=== PATIENT | male | born 1945 | race Two or more races ===

== ENCOUNTER 2024-10-19 06:29 | Inpatient (IN) | payer MEDICARE, MEDICAID, SELFPAY ==
[2024-10-19] VITALS (38 sets, daily range): BP systolic 52–108; BP diastolic 32–84; PULSE 69–133; RESP 14–29; TEMP 36.1–37; O2SAT 87–100; BMI 33.7; BMI 34.2
--- NOTE | 2024-10-19 06:36 | PD.EDADULT ---
ED General RME/HPI General Chief complaint: Fall Stated complaint: FALL Time Seen by Provider: 10/19/24 06:31 Arrival date/time: 10/19/24 06:29 RME / HPI RME / HPI narrative: DR. ALDANA MAIN ED EVALUATION: 78 year old male presents to the Emergency Department [facility] with complaint of a fall, something about the patient lost balance and got stuck between bed or dresser. Per EMS, patient was hypotensive, systolic BP in the 60's. Patient also complains of being thirsty. EMS reported that his home was dirty. 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 Social Hx: No tobacco, alcohol, or substance use. Related Data Home Medications ?Medication ?Instructions ?Recorded ?Confirmed lovastatin 20 mg tablet 20 mg PO HS #0 tabs 06/08/15 05/28/21 amlodipine 5 mg tablet 5 mg PO QDAY 09/04/20 05/28/21 doxazosin 4 mg tablet 4 mg PO QDAY 09/04/20 05/28/21 fluoxetine 10 mg capsule 10 mg PO QDAY 09/04/20 05/28/21 lisinopril 20 mg tablet 20 mg PO QDAY 09/04/20 05/28/21 metoprolol tartrate 100 mg tablet 100 mg PO BID 09/04/20 05/28/21 ropinirole 1 mg tablet 1 mg PO HS 09/04/20 05/28/21 Allergies Allergy/AdvReac Type Severity Reaction Status Date / Time codeine Allergy Mild WHOLE BODY Verified 10/19/24 07:20 SWELLED Penicillins Allergy Mild Difficulty Verified 10/19/24 07:20 Breathing hydrocodone Allergy Unknown Verified 10/19/24 07:20 Review of Systems Review of Systems Systems Reviewed: All systems reviewed, normal except as documented Narrative Review of Systems: GEN: No fever, no chills, no weight loss, + thirsty EYES: No discharge, no visual changes, no pain HEENT: No ear pain, no congestion, no sore throat PULM: No shortness of breath, no cough, no congestion CV: No chest pain, no dyspnea on exertion, no palpitations GI: No nausea, no vomiting, no diarrhea, no pain, no constipation : No frequency, no urgency and no dysuria MUSC/SKEL: + head injury possible secondary to fall, no back pain SKIN: No rash PSYCH: No hallucinations, no depression HEME/LYMPH: No easy bleeding or bruising tendencies NEURO: No weakness, no headache Past Medical History Past Medical History NEUROLOGIC: Positive Cerebrovascular Accident and Traumatic Brain Injury CARDIAC: Positive Cardiac Disorders, Hypercholesterolemia and Hypertension RESPIRATORY: Positive Chronic Obstructive Pulmonary Disease (COPD) GASTROINTESTINAL: Negative Gastrointestinal Disorders ENDOCRINE: Positive Diabetes Mellitus Type 2 Social History SMOKING STATUS: Unknown if ever smoked ED Exam Narrative Physical exam: GENERAL APPEARANCE: Patient had slurred speech but making sense; initially at arrival the patient was pale and diaphoretic. VITALS: All vitals were reviewed and the pulse ox is 96% on 6 L/min via a nasal cannula. HEENT: deformity to left skull and scalp consistent with old craniotomy; pupils equal, round, reactive to light; EOMI; mucous membranes pink, moist; oropharynx clear NECK: Supple LUNGS: CTABL; no wheezes, no rales, no rhonchi HEART: Regular rate, regular rhythm; normal S1, S2; no murmurs ABDOMEN: non distended; normal BS; soft, no tenderness, no guarding, no rebound; no masses, no organomegaly, no hernia BACK: no CVA tenderness EXTREMITIES: little ecchymosis and mild abrasion to the right knee NEUROLOGIC: awake; alert and oriented x4; cranial nerves II-XII grossly intact; no focal sensory or motor deficits PSYCHIATRIC: appropriate mood and affect SKIN: warm, dry, normal color; no rashes Course Course Course Narrative: 1130: 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 Daughter did not call. 1140: Patient will stay and not leave AMA. Quality Measures none Orders Category Date Time Status Bedside COVID-19 Antigen Test NOW Care 10/19/24 10:13 Active Bedside Influenza A&B Antigen Test NOW Care 10/19/24 10:13 Completed Paid Search Manager NOW Care 10/19/24 06:46 Active EKG (ED ONLY) *Do not use* NOW Care 10/19/24 06:46 Completed EKG (ED ONLY) *Do not use* NOW Care 10/19/24 09:25 Completed Bell [Urinary Catheter] QS Care 10/19/24 08:[address] abdomen pelvis wo con Stat Exams 10/19/24 09:[address] cervical spine wo con Stat Exams 10/19/24 07:[address] head/brain wo con Stat Exams 10/19/24 07:41 Completed EKG (ED Only) Stat Exams 10/19/24 06:46 Draft EKG (ED Only) Stat Exams 10/19/24 09:25 Draft XR chest 1V portable Stat Exams 10/19/24 06:46 Completed XR hip RT w pelvis 2-3V Stat Exams 10/19/24 06:55 Completed A1C [Glycohemoglobin w (eAG)] Stat Lab 10/19/24 06:50 Completed B-Type Natriuretic Peptide Stat Lab 10/19/24 06:50 Completed Blood Culture (Lab) Stat Lab 10/19/24 11:17 Received CBC Stat Lab 10/19/24 06:50 Completed Comprehensive Metabolic Panel Stat Lab 10/19/24 06:50 Completed Lactate (Lactic Acid) Stat Lab 10/19/24 11:23 Completed Lipase Stat Lab 10/19/24 06:50 Completed Magnesium Stat Lab 10/19/24 06:50 Completed Partial Thromboplastin Time Stat Lab 10/19/24 06:50 Completed Procalcitonin Stat Lab 10/19/24 11:23 Received Prothrombin Time with INR Stat Lab 10/19/24 06:50 Completed Troponin I Stat Lab 10/19/24 06:50 Completed UA, C/S IF [Urinalysis, C/S if Indicated] Stat Lab 10/19/24 08:35 Completed Urine Culture Stat Lab 10/19/24 08:35 Received Norepinephrine/D5W 8mg/250ml [Levophed in D5W 8mg/250ml Med 10/19/24 09:09 Active ] 8 mg in 250 ml IV 0.05 mcg/kg/min Sodium Chloride 0.9% 1000 ml [Ns] 1,000 ml Med 10/19/24 06:52 Discontinued IV 999 mls/hr Sodium Chloride 0.9% 1000 ml [Ns] 1,000 ml Med 10/19/24 06:54 Discontinued IV 999 mls/hr Sodium Chloride 0.9% 1000 ml [Ns] 1,000 ml Med 10/19/24 08:01 Discontinued IV 999 mls/hr Sodium Chloride 0.9% 1000 ml [Ns] 1,000 ml Med 10/19/24 08:40 Discontinued IV 999 mls/hr fentaNYL INJ [Sublimaze Inj] Med 10/19/24 11:30 Discontinued 50 mcg IVP X1 ONE Vital Signs Vital signs: Vital Signs Pulse Rate 118 H 10/19/24 06:30 Blood Pressure 70/45 L 10/19/24 06:30 Pulse Oximetry (%) 96 10/19/24 06:30 Oxygen Delivery Method Nasal Cannula 10/19/24 06:30 Oxygen Flow Rate 6 10/19/24 06:30 [facility] Patient data External records reviewed:: [facility] previous records (Reviewed last admission discharge dated 05/30/21, patient admitted for the following: Cervical strain Also reviewed old records and noted old TBI.) and EMS form Clinical information provided by:: patient and EMS Social determinants that could affect healthcare access:: none Patient has the following chronic illnesses:: 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 How is presenting disease/condition affected by chronic disease/condition?: exacerbated by Evaluation data The following diagnostics were reviewed and interpreted by me:: lab results, radiology exam(s) and EKG tracing(s) (EKG#1: EKG at 0723 hours. Interpreted by me: atrial fibrillation, rate 98, right bundle branch block EKG#2: EKG at 0929 hours. Interpreted by me: atrial fibrillation, rate 98, right bundle branch block ) Lab and/or radiology exams considered but not ordered:: none Interpretation Summary: Procedure(s): CT abdomen pelvis [facility] Accession Number(s): [id number] cc: Jairo Weaver MD; Chris Martinez MD; Terri Aldana MD~ Examination: CT abdomen and pelvis without contrast. Coronal 3-D reconstructions. Sagittal 2-D reconstructions. Date and time of exam:October 19, 2024 0945 hrs. Indications: Patient fell this morning with injury to the abdomen and pelvis, abdomen pain pelvic pain right hip pain CTDI: vol (mGy): 21.3 DLP: (mGycm): 1284 Technique: Axial images of the abdomen have been obtained, 3 mm slice thickness Intravenous contrast material has not been administered. Low dose protocols were performed. One or more of the following dose reduction techniques were used; automated exposure control, adjustment of the mA and/or KV according to patient size, use of iterative reconstruction technique. Findings: Fatty infiltration throughout the liver No liver splenic or renal laceration Aorta normal size No bowel obstruction Negative for pneumoperitoneum Normal appendix No hydronephrosis Abdominal aorta intact with no free blood in the abdomen or pelvis Urinary bladder contracted around a Bell catheter Prostatomegaly transverse dimension 5.6 cm Lumbar vertebral bodies, sacral segments Bones of the pelvis right and left hips appear intact Impression: No abdominal parenchymal laceration Abdominal aorta intact No free blood in the abdomen or pelvis No hip pelvic or lumbar vertebral body fracture Dictated By: Chris Martinez MD Procedure(s): CT head/brain wo [facility] [place] Accession Number(s): [id number] cc: Jairo Weaver MD; Chris Martinez MD; Terri Aldana MD~ Examination: CT brain head without contrast. 2-D sagittal coronal reconstructions Date and time of exam:August 28, 2025 0941 hrs. Comparison 05/28/2021 CTDI: vol (mGy):68.5 DLP: (mGycm):480 Indications: History CVA, patient fell this morning altered mental status Technique: Multiple CT axial sections of the brain have been obtained, 5 mm slice thickness. Contrast has not been administered. 2-D sagittal, coronal reconstructions have been obtained Low dose protocols were performed. One or more of the following dose reduction techniques were used; automated exposure control, adjustment of the mA and/or KV according to patient size, use of iterative reconstruction technique. Findings: Left craniotomy defect with large area of left frontal parietal encephalomalacia again noted Ventricles are not enlarged No interval hemorrhage either intra or extra-axial No cranial vault fracture Impression: No acute hemorrhage mass effect or midline shift Dictated By: Chris Martinez MD Procedure(s): CT cervical spine wo [facility] [place] Accession Number(s): [id number] cc: Jairo Weaver MD; Chris Martinez MD; Terri Aldana MD~ Examination: CT cervical spine without contrast 2-D sagittal reconstructions 2-D coronal reconstructions 3-D reconstructions. Exam date and time:October 19, 2024 at 0955 hrs. Indications: Patient fell this morning with injury to the neck, neck pain CTDI:vol (mGy) 10.6 DLP: (mGycm) with Technique: Multiple 2 mm axial sections of the cervical spine have been obtained. The coronal and sagittal reconstructions have been obtained. 3-D reconstructions have been obtained. Low dose protocols were performed. One or more of the following dose reduction techniques were used; automated exposure control, adjustment of the mA and/or KV according to patient size, use of iterative reconstruction technique. Findings: Axial sections demonstrate intact base of the skull. C1 exhibit satisfactory relationship to the odontoid. No acute cervical vertebral body fracture seen. Alignment posterior spinous processes satisfactory. Impression: No acute cervical fracture. Dictated By: Chris Martinez MD Procedure(s): XR hip RT w pelvis 2-3V Accession Number(s): [id number] cc: Chris Martinez MD; Terri Aldana MD~ Examination:Right hip AP, lateral, AP pelvis 3 views Technique: Hip AP lateral, AP pelvis, 3 views Exam date and time:October 2024656 hrs. Indications: Patient fell today with injury to the right hip, right hip pain. Findings: No right hip fracture or dislocation Left hip bones of the pelvis intact Patient is not cooperative which limits the quality of this study Impression: No right hip fracture depicted Repeat this study short-term as clinically warranted. Dictated By: Chris Martinez MD Procedure(s): XR chest 1V portable Accession Number(s): [id number] cc: Chris Martinez MD; Terri Aldana MD~ Examination: AP chest single view Technique one AP portable semiupright chest single view Exam date and time: October 19, 2024 0657 hrs. Indications: Patient fell today with injury of the chest, chest pain. Findings: Poor inspiratory effort No pneumothorax The film is rotated RPO Mild prominence cardiac contour Clavicles bones of the shoulders visualized ribs appear intact Impression: Technically limited chest x-ray No pneumothorax Dictated By: Chris Martinez MD Medications Medications considered but not ordered:: none Medication administrations:: Medication Administration History Norepinephrine/Dextrose (Levophed In D5w 8mg/250ml) 8 mg in 250 mls @ 9.993 mls/hr IV .Q24H PRN; Protocol PRN Reason: PER PROTOCOL Stop: 11/18/24 09:08 Discontinued Medications Fentanyl Citrate (Fentanyl Cit Inj 50 Mcg/Ml Amp 2ml) 50 mcg IVP X1 ONE Stop: 10/19/24 11:31 Last Admin: 10/19/24 11:45 Dose: 50 mcg Documented By: BD Sodium Chloride (Ns) 1,000 mls @ 999 mls/hr IV .Q1H1M ONE Stop: 10/19/24 07:52 Last Infusion: 10/19/24 07:08 Dose: Infused Documented By: Admin: 10/19/24 06:55 Dose: 999 mls/hr Documented By: EE Sodium Chloride (Ns) 1,000 mls @ 999 mls/hr IV .Q1H1M ONE Stop: 10/19/24 07:54 Last Infusion: 10/19/24 08:55 Dose: Infused Documented By: Admin: 10/19/24 06:56 Dose: 999 mls/hr Documented By: EE Sodium Chloride (Ns) 1,000 mls @ 999 mls/hr IV .Q1H1M ONE Stop: 10/19/24 09:01 Last Infusion: 10/19/24 08:40 Dose: Infused Documented By: Admin: 10/19/24 08:04 Dose: 999 mls/hr Documented By: BD Sodium Chloride (Ns) 1,000 mls @ 999 mls/hr IV .Q1H1M ONE Stop: 10/19/24 09:40 Last Infusion: 10/19/24 10:00 Dose: Infused Documented By: Admin: 10/19/24 08:42 Dose: 999 mls/hr Documented By: BD see above Consultations Consultation(s) initiated? (list below): Yes Consultation #1 (Physician, Specialty, Details): Discussed test HPI, PMHx, lab, radiology results and/or management with hospitalist Dr. Smalls. Will admit for further evaluation and management. Accepts patient for admission. Time: 11:45 Diagnosis Differential Diagnosis ED Complaint MDM: Dehydration, fall, hypotension Most likely diagnosis given after review of the tests above:: Dehydration Fall Hypotension Atrial fibrillation Admission Indicated Admission indicated?: indicated Explain why admission is indicated or not indicated:: Diagnoses meet admission criteria. Admission Request Was there a request for admission?: Yes Admission Attestation Admission request attestation: Discussed case with [] from Hospitalist service regarding admission. Discussed patients ED course, exam findings, labs, and radiology results. The Hospitalist [agrees,declines] to accept the patient for admission. Disposition Plan Disposition Plan: Admit Medical Decision Making MDM Narrative MDM Narrative: I, Jill Dee, gretchen scribing for and in the presence of Dr. Aldana. Differential Diagnosis Differential Diagnosis: Dehydration, fall, hypotension Lab Data 10/19/24 06:50 10/19/24 06:50 Labs: Lab Results 10/19/24 10/19/24 10/19/24 Range/Units 06:50 08:35 11:23 WBC 9.8 (3.8-10.6) Thou/mm3 RBC 4.55 (4.50-5.90) Miln/mm3 Hgb 14.5 (13.5-16.0) g/dL Hct 43.7 (41.0-53.0) % MCV 96 (80-100) fL MCH 31.9 (25.0-35.0) pg MCHC 33.2 (31.0-37.0) g/dl RDW Std Deviation 46.3 H (35.1-43.9) fL Plt Count 218 (140-440) Thou/mm3 Neut % (Auto) 45 (37-80) % Lymph % (Auto) 45 (10-50) % Darke % (Auto) 6 (0-12) % Eos % (Auto) 3 (0-10) % Baso % (Auto) 1 (0-2.5) % Neut # (Auto) 4.4 (1.8-7.7) Thou/mm3 Lymph # (Auto) 4.4 (1.0-4.8) Thou/mm3 Darke # (Auto) 0.6 (0.0-0.8) Thou/mm3 Eos # (Auto) 0.3 (0.0-0.5) Thou/mm3 Baso # (Auto) 0.1 (0.0-0.2) Thou/mm3 Immature Gran # (Auto) 0.04 H (0.00-0.00) Thou/mm3 Absolute Nucleated RBC 0.00 (0.00-0.00) Thou/mm3 Immature Gran % 0 (0-0) % Nucleated RBC % 0 (0) /100 WBC PT 10.7 (9.0-12.2) Seconds INR 1.0 (0.9-1.3) APTT 23.2 (22.0-36.0) Seconds Sodium 136 (136-145) mMol/L Potassium 4.2 (3.4-5.1) mMol/L Chloride 98 (98-107) mMol/L Carbon Dioxide 23.0 (20.0-31.0) mMol/L Anion Gap 15 (7-16) BUN 16 (9-23) mg/dL Creatinine 1.3 (0.6-1.3) mg/dL Estim Creat Clear Calc 57.3 L (>60) mL/min eGFR 56 L (60 - ) See Note BUN/Creatinine Ratio 12 (12-20) Ratio Glucose 222 H (74-106) mg/dL Estimated Ave Glu mg/dL 120 (80-131) mg/dL Hemoglobin A1c 5.8 (4.8-6.0) % Hgb Calculated Osmolality 280 (275-295) Lactic Acid 1.7 (0.4-2.0) mMol/L Calcium 9.2 (8.3-10.6) mg/dL Corrected Calcium 9.2 (8.5-10.1) mg/dL Magnesium 2.1 (1.6-2.6) mg/dL Total Bilirubin 0.4 (0.3-1.2) mg/dL AST 54 H (0-34) U/L ALT 41 (10-49) U/L Alkaline Phosphatase 97 (46-116) U/L Troponin I < 0.020 (0.0-0.045) ng/mL B-Natriuretic Peptide < 20 (0-100) pg/mL Total Protein 6.7 (5.7-8.2) gm/dL Albumin 4.0 (3.4-4.8) gm/dL Globulin 2.7 (2.3-3.5) gm/dL Albumin/Globulin Ratio 1.5 (1.2-2.2) Lipase 38 (12-53) U/L Ur Collection Type Clean Catch Urine Color Lt-Yellow (Lt Yel-Yel) Urine Clarity Clear (Clear/Hazy) Urine pH 6.0 (5.0-7.0) Ur Specific [place] 1.014 (1.001-1.035) Urine Protein 1+ A (Neg - Trace) Urine Glucose (UA) Negative (Negative) Urine Ketones Negative (Negative) Urine Blood Trace (Negative) Urine Nitrite Negative (Negative) Urine Bilirubin Negative (Negative) Urine Urobilinogen (Auto) Negative (0.0-1.0) mg/dL Ur Leukocyte Esterase Positive (Negative) Urine RBC 19 H (0-3) /hpf Urine WBC 1 (0-5) /hpf Ur Squamous Epith Cells 0 (0-5) /hpf Urine Bacteria None (None) Hyaline Casts < 1 (0-1) /hpf Ur Culture Indicated? Not Indicated Discharge Plan Plan Patient Disposition: Admit Acute Care w/in Hospital Disposition Comment: Dr. Smalls, telemetry Prescriptions/Referrals Prescriptions/Med Rec: No Action lovastatin 20 MG tablet 20 mg PO HS Qty: 0 ropinirole 1 mg tablet 1 mg PO HS lisinopril 20 mg tablet 20 mg PO QDAY fluoxetine 10 mg capsule 10 mg PO QDAY metoprolol tartrate 100 mg tablet 100 mg PO BID Patient Comments: TOME TAYLOR TABLETA DOS VECES AL D A CON ALIMENTO amlodipine 5 mg Tablet 5 mg PO QDAY doxazosin 4 mg Tablet 4 mg PO QDAY Referrals: Jairo Weaver MD [Primary Care Provider] - In 1 week Problem List Clinical Impression: Dehydration, Fall, Hypotension, Atrial fibrillation, Atrial fibrillation, new onset Patient/Caregiver Discharge Instructions Print Language: [place]ralt[place] Stand Alone Forms: Irene Award Info., Patient Portal Info Letter
--- NOTE | 2024-10-19 06:46 | XR_ITS ---
Examination: AP chest single view Technique one AP portable semiupright chest single view Exam date and time: October 19, 2024 0657 hrs. Indications: Patient fell today with injury of the chest, chest pain. Findings: Poor inspiratory effort No pneumothorax The film is rotated RPO Mild prominence cardiac contour Clavicles bones of the shoulders visualized ribs appear intact Impression: Technically limited chest x-ray No pneumothorax
--- NOTE | 2024-10-19 06:46 | EKG_ITS ---
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
[2024-10-19] MEDS: SODIUM CHLORIDE 0.9% 1000 ML 1,000 ML 999 ML IV ×4 (06:55→08:42)
--- NOTE | 2024-10-19 06:55 | XR_ITS ---
Examination:Right hip AP, lateral, AP pelvis 3 views Technique: Hip AP lateral, AP pelvis, 3 views Exam date and time:October 2024 0657 hrs. Indications: Patient fell today with injury to the right hip, right hip pain. Findings: No right hip fracture or dislocation Left hip bones of the pelvis intact Patient is not cooperative which limits the quality of this study Impression: No right hip fracture depicted Repeat this study short-term as clinically warranted.
--- NOTE | 2024-10-19 07:10 | PC.NURSE ---
report received from svetlana myers, pt in room awake and alert verbalizing pain with movement for x-ray, pt on 6L 02, pt currently getting 2L NS bolus for hypotension, pt was brought in by ems for a fall at home.
--- NOTE | 2024-10-19 07:41 | XR_ITS ---
Examination: CT cervical spine without contrast 2-D sagittal reconstructions 2-D coronal reconstructions 3-D reconstructions. Exam date and time:October 19, 2024 at 0955 hrs. Indications: Patient fell this morning with injury to the neck, neck pain CTDI:vol (mGy) 10.6 DLP: (mGycm) with Technique: Multiple 2 mm axial sections of the cervical spine have been obtained. The coronal and sagittal reconstructions have been obtained. 3-D reconstructions have been obtained. Low dose protocols were performed. One or more of the following dose reduction techniques were used; automated exposure control, adjustment of the mA and/or KV according to patient size, use of iterative reconstruction technique. Findings: Axial sections demonstrate intact base of the skull. C1 exhibit satisfactory relationship to the odontoid. No acute cervical vertebral body fracture seen. Alignment posterior spinous processes satisfactory. Impression: No acute cervical fracture.
--- NOTE | 2024-10-19 07:41 | XR_ITS ---
Examination: CT brain head without contrast. 2-D sagittal coronal reconstructions Date and time of exam:August 28, 2025 0941 hrs. Comparison 05/28/2021 CTDI: vol (mGy):68.5 DLP: (mGycm):480 Indications: History CVA, patient fell this morning altered mental status Technique: Multiple CT axial sections of the brain have been obtained, 5 mm slice thickness. Contrast has not been administered. 2-D sagittal, coronal reconstructions have been obtained Low dose protocols were performed. One or more of the following dose reduction techniques were used; automated exposure control, adjustment of the mA and/or KV according to patient size, use of iterative reconstruction technique. Findings: Left craniotomy defect with large area of left frontal parietal encephalomalacia again noted Ventricles are not enlarged No interval hemorrhage either intra or extra-axial No cranial vault fracture Impression: No acute hemorrhage mass effect or midline shift
[2024-10-19 07:48] LABS: Basophils # (Auto) 0.1 Thou/mm3 (0.0-0.2); Basophils % (Auto) 1 % (0-2.5); Eosinophils # (Auto) 0.3 Thou/mm3 (0.0-0.5); Eosinophils % (Auto) 3 % (0-10); Hematocrit 43.7 % (41.0-53.0); Hemoglobin 14.5 g/dL (13.5-16.0); Immature Granulocytes % (Auto) 0 % (0-0); Immature Granulocytes Auto 0.04 Thou/mm3 (0.00-0.00); Lymphocytes # (Auto) 4.4 Thou/mm3 (1.0-4.8); Lymphocytes % (Auto) 45 % (10-50); Mean Corpuscular HGB Conc 33.2 g/dl (31.0-37.0); Mean Corpuscular Hemoglobin 31.9 pg (25.0-35.0); Mean Corpuscular Volume 96 fL (80-100); Monocytes # (Auto) 0.6 Thou/mm3 (0.0-0.8); Monocytes % (Auto) 6 % (0-12); Neutrophils # (Auto) 4.4 Thou/mm3 (1.8-7.7); Neutrophils % (Auto) 45 % (37-80); Nucleated Red Blood Cell % 0 /100 WBC (0); Platelet Count 218 Thou/mm3 (140-440); RDW Standard Deviation 46.3 fL (35.1-43.9); Red Blood Count 4.55 Miln/mm3 (4.50-5.90); White Blood Count 9.8 Thou/mm3 (3.8-10.6)
[2024-10-19 08:12] LABS: Alanine Aminotransferase 41 U/L (10-49); Albumin/Globulin Ratio 1.5 (1.2-2.2); Alkaline Phosphatase 97 U/L (46-116); Anion Gap 15 (7-16); Aspartate Amino Transferase 54 U/L (0-34); BUN/Creatinine Ratio 12 Ratio (12-20); Bilirubin,Total 0.4 mg/dL (0.3-1.2); Blood Urea Nitrogen 16 mg/dL (9-23); Calcium 9.2 mg/dL (8.3-10.6); Calcium (Corrected) 9.2 mg/dL (8.5-10.1); Chloride 98 mMol/L (98-107); Creatinine (Component) 1.3 mg/dL (0.6-1.3); Estimated Creatinine Clearance 57.3 mL/min (>60); Globulin 2.7 gm/dL (2.3-3.5); Glucose 222 mg/dL (74-106); Lipase 38 U/L (12-53); Magnesium 2.1 mg/dL (1.6-2.6); Osmolality,Calculated 280 (275-295); Potassium 4.2 mMol/L (3.4-5.1); Sodium 136 mMol/L (136-145); Total Protein 6.7 gm/dL (5.7-8.2); Troponin I < 0.020 ng/mL (0.0-0.045); eGFR 56 See Note
[2024-10-19 08:14] LABS: Glucose Estimated Average 120 mg/dL (80-131); Hemoglobin A1C 5.8 % Hgb (4.8-6.0)
--- NOTE | 2024-10-19 08:20 | PC.NURSE ---
provider in room wants b/p on other arm, b/p improved 85/70 lefty arm, dr. marina espinoza ordered.
[2024-10-19 08:34] LABS: B-Type Natriuretic Peptide < 20 pg/mL (0-100)
--- NOTE | 2024-10-19 08:38 | PC.NURSE ---
dr. goncalves noptifed 60 cc of urine ouput she gave verbal order to order 1L ns
[2024-10-19 08:41] LABS: Partial Thromboplastin Time 23.2 Seconds (22.0-36.0); Prothrombin Time 10.7 Seconds (9.0-12.2)
--- NOTE | 2024-10-19 09:14 | PC.NURSE ---
NOTIIFED B/P 86/72 MAP 76 AFTER 4TH LITER OF NS
--- NOTE | 2024-10-19 09:25 | EKG_ITS ---
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
[2024-10-19 09:37] LABS: Collection Type, Urine Clean Catch; Squamous Epithelial Cell,Urine 0 /hpf (0-5)
--- NOTE | 2024-10-19 09:37 | XR_ITS ---
Examination: CT abdomen and pelvis without contrast. Coronal 3-D reconstructions. Sagittal 2-D reconstructions. Date and time of exam:October 19, 2024 0945 hrs. Indications: Patient fell this morning with injury to the abdomen and pelvis, abdomen pain pelvic pain right hip pain CTDI: vol (mGy): 21.3 DLP: (mGycm): 1284 Technique: Axial images of the abdomen have been obtained, 3 mm slice thickness Intravenous contrast material has not been administered. Low dose protocols were performed. One or more of the following dose reduction techniques were used; automated exposure control, adjustment of the mA and/or KV according to patient size, use of iterative reconstruction technique. Findings: Fatty infiltration throughout the liver No liver splenic or renal laceration Aorta normal size No bowel obstruction Negative for pneumoperitoneum Normal appendix No hydronephrosis Abdominal aorta intact with no free blood in the abdomen or pelvis Urinary bladder contracted around a Bell catheter Prostatomegaly transverse dimension 5.6 cm Lumbar vertebral bodies, sacral segments Bones of the pelvis right and left hips appear intact Impression: No abdominal parenchymal laceration Abdominal aorta intact No free blood in the abdomen or pelvis No hip pelvic or lumbar vertebral body fracture
[2024-10-19 09:53] LABS: Bilirubin,Urine Negative (Negative); Blood,Urine Trace (Negative); Clarity,Urine Clear (Clear/Hazy); Color,Urine Lt-Yellow (Lt Yel-Yel); Culture Indicated,Urine Not Indicated; Glucose, Urine Negative (Negative); Hyaline Casts,Urine < 1 /hpf (0-1); Ketones,Urine Negative (Negative); Leukocyte Esterase,Urine Positive (Negative); Nitrite,Urine Negative (Negative); Protein,Urine 1+ (Neg - Trace); RBC,Urine 19 /hpf (0-3); Specific Gravity,Urine 1.014 (1.001-1.035); Urobilinogen,Urine Negative mg/dL (0.0-1.0); WBC,Urine 1 /hpf (0-5)
--- NOTE | 2024-10-19 10:01 | PC.NURSE ---
REPOSITION PT CHANGED LINEN
--- NOTE | 2024-10-19 10:03 | PC.NURSE ---
PT BACK FROM CT UNABLE TO GET B/P TRIED MULTIPLE TIMES, PT MOANING AND TALKING IN [place]
--- NOTE | 2024-10-19 10:25 | PC.NURSE ---
CAREGIVER JARAD BELLO AT BEDSIDE SPEAKING WITH PT, HE STATED THAT PT DOES NOT WANT TO BE HERE WANTS TO GO TO [facility] THEY HAVE ALL HIS MEDICAL INFORMATION.
--- NOTE | 2024-10-19 10:31 | PC.NURSE ---
TRIED TO USE INTERPETER LINE PT WAS UNABLE TO ANSWER QUESTIONS, WATSON BEGAN TO HET UPSET AND STATE THAT HE CANT ANSWER ON THE PHONE AND LEFT ROOM HE STATED HE WILL GET SOMEONE TO INTERPRET. HE DID NOT WANT US TO USE TRADE EMBALMER LINE
--- NOTE | 2024-10-19 10:34 | PC.NURSE ---
CAREGIVER JARAD STATE THAT HE DOES NOT MEDICAL DECISIONS PT DAUGHTER DOES
--- NOTE | 2024-10-19 10:40 | PC.NURSE ---
LAB CAME TO DRAW PT CHARGE NURSE ALESSIA STATED TO HOLD BLOOD DRAW PT PENDING LEAVING A
--- NOTE | 2024-10-19 10:40 | PC.NURSE ---
TILE LAYER HELPER ALESSIA IN ROOM WITH PT AND CAREGIVER JARAD SPEAKING WITH ALESSIA ESTRADA, PT WANTS TO LEAVE AMA, ADVISED THAT PT CANT SIGN AMA THAT THE DAUGHTER NEEDS TO MAKE THE DECISION TO LEAVE AMA.
--- NOTE | 2024-10-19 10:45 | PC.NURSE ---
NOTIFIED PT WANTING TO LEAVE AMA AND GO TO [facility] WAITING FOR DAUGHTER TO CALL SO SHE CAN SPEAK WITH PROVIDER
--- NOTE | 2024-10-19 10:50 | PC.NURSE ---
PT PLACED ON BED HAM HE WAS UNABLE TO GO TO THE RESTROOM WILL TRY AGAIN LATER TIME WHEN READY
--- NOTE | 2024-10-19 11:03 | PC.NURSE ---
CAREGIVER JARAD IN ROOM WITH WHEELCHAIR, SPEAKING WITH MANE ESTRADA ADVISED THAT HE CANT LEAVE DAUGHTER HAS NOT CALLED, HE IS BEING VERY DISRESPECTFUL, ASKING WHY WE HAVE NOT CALLED DAUGHTER ADVISED THAT HE STATED THAT SHE WOULD BE CALLING SO THAT WE CAN SPEAK WITH DAUGHTER. CAREGIVER JARAD KEEP ARGUING STATING THAT PT CAN MAKE IS OWN DECISIONS, WE ADVISED THAT HE IS NOT ABLE BASED ON ASSESSMENT. SEAN AGGARWAL IN ROOM WELL SPEAKING TO CAREGIVER JARAD. CAREGIVER ASKED TIME ALONE TO SPEAK WITH PATIENT. PER ALESSIA ESTRADA PT NOT UNDERSTANDING HOW SERIOUS HE IS.
--- NOTE | 2024-10-19 11:08 | PC.NURSE ---
WATSON ABRAHAM STATED THAT PT STATES THAT HE WANTS TO STAY HERE NOW WILL NOTIFY PROVIDER
--- NOTE | 2024-10-19 11:32 | PC.NURSE ---
NOTIFIED DR. MAE PT IS STATING 06/20 PAIN LOWER BACK
[2024-10-19] MEDS: fentaNYL CIT INJ 50 mCg/ML AMP 2ML IVP (11:45)
[2024-10-19 11:49] LABS: Lactate (Lactic Acid) 1.7 mMol/L (0.4-2.0)
[2024-10-19 12:25] LABS: Procalcitonin 0.05 ng/ml (0.0-0.49)
--- NOTE | 2024-10-19 12:33 | PC.NURSE ---
HOSPITALIST IN WITH PATIENT
[2024-10-19 13:02] LABS: Creatine Kinase 74 U/L (34-171)
--- NOTE | 2024-10-19 13:12 | PC.NURSE ---
pt's daughter called for update and informed that pt was dehydrated and low b/p and will be admitted for dehydration
--- NOTE | 2024-10-19 13:16 | ECHO_ITS ---
Transthoracic Echo Report Ht (in): 70 Wt (lb): 235 Exam Location: Echo Lab Status: Inpatient Sparker And Patcher: Estefani Moses Indications: Procedure Performed: BP: 124 / 66 HR: 117 Technical Quality: Technically difficult study MEASUREMENTS (Male / Female) Normal Values 2D ECHO LV Diastolic Diameter PLAX 4.7 cm 4.2 - 5.9 / 3.9 - 5.3 cm LV Systolic Diameter PLAX 3.3 cm IVS Diastolic Thickness 1.3 cm 0.6 - 1.0 / 0.6 - 0.9 cm LVPW Diastolic Thickness 1.2 cm 0.6 - 1.0 / 0.6 - 0.9 cm LV Relative Wall Thickness 0.5 LVOT Diameter 2.3 cm LV Ejection Fraction MOD BP 32.4 % >= 55 % LV Cardiac Index MOD BP 1707.3 cm?/min?m? LV Ejection Fraction MOD 4C 35.6 % LV Cardiac Index MOD 4C 1586.8 cm?/min?m? LV Ejection Fraction 4C AL 35.4 % LV Cardiac Index 4C AL 1633.8 cm?/min?m? LV Ejection Fraction MOD 2C 28.0 % LV Cardiac Index MOD 2C 1516.5 cm?/min?m? LV Ejection Fraction 2C AL 28.7 % LV Cardiac Index 2C AL 1630.2 cm?/min?m? LA Volume Index 26.5 cm?/m? 16 - 28 cm?/m? M-MODE Aortic Root Diameter MM 3.3 cm LA Systolic Diameter MM 3.3 cm LA Ao Ratio MM 1.0 AV Cusp Separation MM 2.3 cm DOPPLER AV Peak Velocity 153.5 cm/s AV Peak Gradient 9.4 mmHg AV Mean Gradient 4.7 mmHg AV Velocity Time Integral 29.2 cm LVOT Peak Velocity 155.0 cm/s LVOT Peak Gradient 9.6 mmHg LVOT Velocity Time Integral 29.4 cm LVOT Cardiac Index 6133.6 cm?/min?m? AV Area Cont Eq vti 4.2 cm? AV Area Cont Eq pk 4.2 cm? MR Peak Velocity 467.5 cm/s MR Peak Gradient 87.4 mmHg TR Peak Velocity 242.0 cm/s TR Peak Gradient 23.4 mmHg PV Peak Velocity 65.2 cm/s PV Peak Gradient 1.7 mmHg FINDINGS Left Ventricle Normal left ventricular size. Mild LVH. The ejection fraction is visually estimated at 50-55%. Right Ventricle The right ventricle is normal in size and systolic function. Left Atrium The left atrium is normal by two-dimensional, color flow and Doppler imaging with no structural abnormalities, no thrombus formation present. Right Atrium The right atrium is normal by two-dimensional imaging, color flow and Doppler imaging with no structural abnormalities, no thrombus formation present. Atrial Septum The interatrial septum appears normal with no evidence of a shunt. Aorta The aorta is normal by two-dimensional, color flow and Doppler interrogation. Mitral Valve The mitral valve is normal by two-dimensional, color flow and Doppler interrogation. Mild to moderate mitral regurgitation. Aortic Valve The aortic valve is trileaflet and normal by two-dimensional, color flow and Doppler interrogation. There is no significant aortic valve regurgitation. Tricuspid Valve The tricuspid valve is normal by two-dimensional, color flow and Doppler interrogation. There is mild tricuspid valve regurgitation. Pulmonic Valve The pulmonic valve is not well visualized. There is no significant pulmonic valve regurgitation. Vessels The pulmonary artery appears normal. The inferior vena cava pulmonary and hepatic veins appear normal. Pericardium The pericardium is normal by two-dimensional imaging. There is no significant pericardial effusion. CONCLUSIONS Indication: New onset afib. Severe LV dysfuntion with estimated EF of 30-35% with global hyopkinesis. Cannot r/o any apical akinesis. Normal LV size. Mild LVH. Diastolic dysfunction cannot be graded due to afib. Normal RV size and systolic function. Estimated RVSP 35 - 40 mmhg. Mild to moderate MR. Moderate MAC. Mild TR. Sourav Gagnon (Electronically Signed) Final Date: 20 October 2024 13:52
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
--- NOTE | 2024-10-19 13:27 | PC.NURSE ---
ATTEMPTED TO CALL REPORT NURSE NOT AVAILABLE
--- NOTE | 2024-10-19 13:38 | PC.NURSE ---
PER RN FRED THEY CANT TAKE PT TO MED/SURG FLOOR
--- NOTE | 2024-10-19 13:38 | PC.NURSE ---
GAVE REPORT TO FRED SHE WAS CONCERNED B/P 85/ SHE SPOKE W/ HER CHARGE AND IS UNABLE TO TAKE PT
--- NOTE | 2024-10-19 14:03 | PC.NURSE ---
SPOKE WITH ADVISED PT PAST SWALLOW TEST PT IS WANTING TO EAT HE SAID HE WILL PUT ORDER FOR DIET
[2024-10-19] MEDS: GABAPENTIN 300 MG CAPSULE 600 MG PO ×2 (14:10→21:30)
[2024-10-19] MEDS: ACETAMINOPHEN 325 MG TABLET 650 MG PO (14:12)
--- NOTE | 2024-10-19 14:20 | PC.NURSE ---
CAREGIVER JARAD ASKED IF PT CAN HAVE 7 UP ADVISED WE DONT HAVE IT HERE IN ER BUT DUE TO DM PT NEEDS TO HAVE DIET HE ASKED OF HE COULD GET DIET FROM VENDING MACHINE ADVISED YES
--- NOTE | 2024-10-19 14:27 | PC.NURSE ---
HOSPITALIST IN TO SEE PT
--- NOTE | 2024-10-19 14:36 | PC.NURSE ---
NOTICED CAREGIVER GAVE PT SPRITE IT WAS NOT DIET, I ADVISED HIM HE CANT HAVE IT AND HE STATED THAT WE SHOULD STOCK THE VENDING MACHINE WITH DIET, I STATED THAT PT CANT BE GIVEN ANYTHING THAT IS NOT WITHIN HIS DIET
--- NOTE | 2024-10-19 15:05 | PC.NURSE ---
CALLED TO GIVE REPORT SEAN MARTINEZ
--- NOTE | 2024-10-19 15:12 | PC.NURSE ---
CALLED CAREGIVER ADVISED PT WILL BE GOING TO RM 270
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
[2024-10-19 19:55] LABS: Albumin, Serum 3.5 gm/dL (3.4-4.8); Anion Gap 7 (7-16); BUN/Creatinine Ratio 15 Ratio (12-20); Blood Urea Nitrogen 15 mg/dL (9-23); Calcium 8.4 mg/dL (8.3-10.6); Calcium (Corrected) 8.8 mg/dL (8.5-10.1); Carbon Dioxide 24.1 mMol/L (20.0-31.0); Chloride 109 mMol/L (98-107); Estimated Creatinine Clearance 75.1 mL/min (>60); Glucose 136 mg/dL (74-106); Osmolality,Calculated 282 (275-295); Phosphorous 3.8 mg/dL (2.4-5.1); Potassium 4.6 mMol/L (3.4-5.1); Sodium 140 mMol/L (136-145); eGFR > 60 See Note
[2024-10-19] MEDS: SODIUM CHLORIDE RT SOL 0.9% 3 ML NEBU INH (19:58)
[2024-10-19] MEDS: LEVALBUTEROL RT 1.25 MG/0.5 ML NEBU INH (19:58)
[2024-10-19] MEDS: APIXABAN 2.5 MG TABLET 5 MG PO (21:25)
[2024-10-20] VITALS (18 sets, daily range): BP systolic 95–141; BP diastolic 55–92; PULSE 92–141; RESP 11–24; TEMP 36–36.4; O2SAT 94–99; BMI 34.4
[2024-10-20] MEDS: LEVALBUTEROL RT 1.25 MG/0.5 ML NEBU INH ×4 (01:57→20:13)
[2024-10-20] MEDS: SODIUM CHLORIDE RT SOL 0.9% 3 ML NEBU INH ×4 (01:57→20:13)
--- NOTE | 2024-10-20 04:44 | EKG_ITS ---
[facility] Test Date: 2024-10-20 Pat Name: TREVOR FLORES Department: Room: 60A Gender: Male Fashion Director: EMILY : 1945 Requested By: Bea Sadler Order Number: [id number] Reading MD: Bea Sadler Measurements Intervals [place] Rate: 140 P: CO: QRS: 98 QRSD: 145 T: 194 QT: 308 QTc: 470 Interpretive Statements ATRIAL FIBRILLATION WITH RAPID VENTRICULAR RESPONSE BORDERLINE RIGHT AXIS DEVIATION INTRAVENTRICULAR CONDUCTION DELAY Compared to ECG 10/19/2024 09:29:56 Intraventricular conduction delay now present Right bundle-branch block no longer present /store/S0/[id number]/ecg/[id number].pdf
[2024-10-20] MEDS: AMIODARONE 150 MG IVPB 150 MG/100 ML BAG 600 MG IV (05:37)
[2024-10-20] MEDS: GABAPENTIN 300 MG CAPSULE 600 MG PO ×3 (05:41→21:56)
[2024-10-20] MEDS: AMIODARONE 360 MG IVPB 360 MG/200 ML BAG 33.333 MG IV (05:51)
[2024-10-20 06:48] LABS: Basophils % (Auto) 1 % (0-2.5); Eosinophils # (Auto) 0.2 Thou/mm3 (0.0-0.5); Eosinophils % (Auto) 2 % (0-10); Hemoglobin 12.6 g/dL (13.5-16.0); Immature Granulocytes % (Auto) 0 % (0-0); Immature Granulocytes Auto 0.01 Thou/mm3 (0.00-0.00); Lymphocytes # (Auto) 2.2 Thou/mm3 (1.0-4.8); Lymphocytes % (Auto) 25 % (10-50); Mean Corpuscular HGB Conc 34.1 g/dl (31.0-37.0); Mean Corpuscular Hemoglobin 32.1 pg (25.0-35.0); Mean Corpuscular Volume 94 fL (80-100); Monocytes # (Auto) 0.6 Thou/mm3 (0.0-0.8); Monocytes % (Auto) 7 % (0-12); Neutrophils # (Auto) 5.9 Thou/mm3 (1.8-7.7); Neutrophils % (Auto) 66 % (37-80); Nucleated Red Blood Cell % 0 /100 WBC (0); Platelet Count 192 Thou/mm3 (140-440); RDW Standard Deviation 45.3 fL (35.1-43.9); Red Blood Count 3.93 Miln/mm3 (4.50-5.90); White Blood Count 8.9 Thou/mm3 (3.8-10.6)
[2024-10-20 06:59] LABS: Alanine Aminotransferase 36 U/L (10-49); Albumin, Serum 3.3 gm/dL (3.4-4.8); Albumin/Globulin Ratio 1.4 (1.2-2.2); Alkaline Phosphatase 76 U/L (46-116); Anion Gap 3 (7-16); Aspartate Amino Transferase 32 U/L (0-34); BUN/Creatinine Ratio 16 Ratio (12-20); Bilirubin,Total 0.5 mg/dL (0.3-1.2); Blood Urea Nitrogen 14 mg/dL (9-23); Calcium 8.2 mg/dL (8.3-10.6); Calcium (Corrected) 8.8 mg/dL (8.5-10.1); Carbon Dioxide 28.8 mMol/L (20.0-31.0); Cardiac Risk Estimate 4.4 RATIO (4.0-6.7); Chloride 106 mMol/L (98-107); Cholesterol 153 mg/dL (132-200); Creatinine (Component) 0.9 mg/dL (0.6-1.3); Estimated Creatinine Clearance 83.6 mL/min (>60); Globulin 2.4 gm/dL (2.3-3.5); Glucose 117 mg/dL (74-106); HDL Cholesterol 35 mg/dL (40-60); LDL Cholesterol,Calculated 77 mg/dL (0-130); Magnesium 1.8 mg/dL (1.6-2.6); Osmolality,Calculated 277 (275-295); Phosphorous 3.1 mg/dL (2.4-5.1); Sodium 138 mMol/L (136-145); Thyroid Stimulating Hormone 0.74 uIU/mL (0.55-4.78); Total Protein 5.7 gm/dL (5.7-8.2); Triglycerides 205 mg/dL (30-150); eGFR > 60 See Note
[2024-10-20 07:02] LABS: Partial Thromboplastin Time 29.2 Seconds (22.0-36.0); Prothrombin Time 11.3 Seconds (9.0-12.2)
[2024-10-20 07:27] LABS: Glucose Estimated Average 123 mg/dL (80-131); Hemoglobin A1C 5.9 % Hgb (4.8-6.0)
[2024-10-20] MEDS: Magnesium Sulfate 2 GM Ivpb 2 GM/50 ML BAG IV (09:41)
[2024-10-20] MEDS: AMIODARONE HCL 200 MG TABLET PO ×2 (09:41→21:55)
[2024-10-20] MEDS: APIXABAN 2.5 MG TABLET 5 MG PO (09:41)
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
[2024-10-20] MEDS: METOPROLOL SUCCINATE XL 25 MG TABCR PO (10:30)
--- NOTE | 2024-10-20 10:49 | PC.SS ---
Commercial Account Officer contacted patient?s daughter Fabiana Miller via telephone [phone] to complete initial assessment. Patient?s daughter Fabiana confirmed she is patient?s alternate medical decision maker. Patient?s daughter Fabiana was unable to provide patient?s home address. She requested SS contact patient?s [facility] manager marketing communications Juarez Sidhu [phone] to confirm patient?s home address: [address] [place], [place] [id number]. Patient?s daughter Fabiana explained her father requires assistance with ADL completion. Patient?s manager marketing communications Juarez Sidhu [phone] assists with ADL completion. Patient utilizes motorized wheelchair for ambulation. [facility]acy: [facility]. PCP: RIAZ. Discharge plan: Home, caregiver Juarez Sidhu [phone] to provide transportation. Alt. decision maker: Harpal Miller [phone].
[2024-10-20] MEDS: AMIODARONE 360 MG IVPB 360 MG/200 ML BAG 25 MG IV ×2 (11:53→20:07)
[2024-10-20 17:52] LABS: Creatinine,Random Urine 54 mg/dL (30-125); Sodium,Urine Random 77.2 mMol/L (20.0-110.0)
[2024-10-20 18:01] LABS: Amphetamine/Methamp Scrn,U Positive (Negative); Barbiturate Screen,Urine Negative (Negative); Benzodiazepines Screen,Urine Negative (Negative); Benzoylecgonine Screen, Ur Negative (Negative); Fentanyl Screen,Urine Negative (Negative); Opiate Screen,Urine Negative (Negative); THC Screen,Urine Positive (Negative)
--- NOTE | 2024-10-20 19:59 | ESPR_ITS ---
Documentation for date of: 10/20/24 Subjective Subjective Interval history: Patient seen and examined at bedside. No new complaints including any cardiac complaints. Patient breathing is better today. Telemetry reviewed and rate appears to be around 100-120 bpm and still continues to be in atrial fibrillation with RVR Recommend patient to be started on oral metoprolol XL 25 mg once daily and continue to uptitrate rate for better control of heart rate based on the blood pressures. Echocardiogram completed 10/20/2024 showed severe LV dysfunction with an EF of 30 to 35% with global hypokinesis cannot rule out apical akinesis. Normal LV and RV size. Normal RV function. Mild LVH diastolic dysfunction cannot be graded due to A-fib. Estimated RVSP of 35 to 40 mmHg. Mild to moderate MR. Moderate MAC and mild TR. 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 Given the new onset severe systolic congestive heart failure with patient recommended a left and right heart cardiac catheterization. Patient unable to provide any consent and discussed this with the daughter who is the next of kin and provides the consent for all the procedures. Explained the risk and patient alternatives of performing a left heart cardiac ablation including the risks of bleeding, heart attack, stroke and in detail. Daughter wanted to speak to the rest of the family and will let us know. In anticipation of the cardiac catheterization recommended to stop the Eliquis completely and start the patient on heparin drip. Will plan for cardiac catheterization on Monday if the family agrees and will keep n.p.o. on Monday morning. Hall potassium greater than 4 and magnesium greater than 2.0 at all times. Check free T4, TSH and A1c for further cardiac risk ratification along with lipid profile. Exam Vital Signs Temp Pulse Resp BP Pulse Ox O2 Del Method O2 Flow Rate 96.8 F 92 15 116/75 95 Nasal Cannula 2 10/20/24 16:10/20/24 16:10/20/24 16:10/20/24 16:00 10/20/24 16:00 10/20/24 16:10/20/24 16:00 Narrative Exam General: Alert and oriented x3. In no acute distress on nasal canula. Eyes: Pupils are equal and reactive to light bilaterally. HEENT: Atraumatic, normocephalic. No JVD noted. Mucosa moist. Cardiovascular: Normal S1 and S2. Irregularly irregular, 2 or 6 systolic murmur at the apex, no peripheral pitting edema noted. Respiratory: Bilateral air entry present but decreased at the bases and on oxygen via nasal cannula Abdomen: Soft, nontender, nondistended. Skin: No rash. Warm to touch. Musculoskeletal: No gross injuries. Able to move all 4 extremities. Neuro: Alert and oriented x3. No focal neuro deficits. Psych: Normal affect and mood Objective Labs 10/20/24 06:00 10/20/24 06:00 Labs: Laboratory Results - last 24 hr 10/20/24 10/20/24 06:00 17:00 WBC 8.9 RBC 3.93 L Hgb 12.6 L Hct 37.0 L MCV 94 MCH 32.1 MCHC 34.1 RDW Std Deviation 45.3 H Plt Count 192 Neut % (Auto) 66 Lymph % (Auto) 25 [place] % (Auto) 7 Eos % (Auto) 2 Baso % (Auto) 1 Neut # (Auto) 5.9 Lymph # (Auto) 2.2 [place] # (Auto) 0.6 Eos # (Auto) 0.2 Baso # (Auto) 0.0 Immature Gran # (Auto) 0.01 H Absolute Nucleated RBC 0.00 Immature Gran % 0 Nucleated RBC % 0 PT 11.3 INR 1.0 APTT 29.2 Sodium 138 Potassium 4.0 D Chloride 106 Carbon Dioxide 28.8 Anion Gap 3 L BUN 14 Creatinine 0.9 Estim Creat Clear Calc 83.6 eGFR > 60 BUN/Creatinine Ratio [address] Glu mg/dL 123 Hemoglobin A1c 5.9 Calculated Osmolality 277 Calcium 8.2 L Corrected Calcium 8.8 Phosphorus 3.1 Magnesium 1.8 Total Bilirubin 0.5 AST 32 ALT 36 Alkaline Phosphatase 76 D Total Protein 5.7 Albumin 3.3 L Globulin 2.4 Albumin/Globulin Ratio 1.4 Triglycerides 205 H Cholesterol 153 LDL Cholesterol, Calc 77 HDL Cholesterol 35 L Cholesterol/HDL Ratio 4.4 TSH 0.74 Ur Random Creatinine 54 Ur Random Sodium 77.2 Urine Opiates Screen Negative Urine Fentanyl Screen Negative Ur Barbiturates Screen Negative U Amphetamin/Meth Scrn Positive A U Benzodiazepines Scrn Negative U Cocaine Metab Screen Negative U Marijuana (THC) Screen Positive A Assessment & Plan A&P Narrative A 78-year-old male with a past medical history of 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 EKG showed atrial fibrillation with a right bundle branch block initially with rate controlled at 98 bpm. Later on patient was in RVR. Cardiology consulted for new onset atrial fibrillation with RVR. 1. Atrial fibrillation with RVR-new onset 2. Acute hypoxic respiratory failure-unclear etiology on oxygen via nasal cannula 3. Acute kidney injury 4. Fall-appears mechanical 5. Traumatic brain injury status post right hemiparesis more than 25 years ago and wheelchair-bound 6. Essential hypertension 7. Hyperlipidemia 8. Morbid obesity 9. Restless leg syndrome 10. BPH New onset atrial fibrillation with RVR: Patient does not have a history of atrial fibrillation with rate controlled at 90 bpm but later on the telemetry did show elevated heart rate indicating atrial fibrillation with RVR. Recommended to continue to monitor telemetry for now as the heart rate has not increased greater than 120 bpm. Patient was hypotensive on arrival with acute kidney injury and hypotension which probably secondary to dehydration. If patient goes into RVR recommend event drip with amiodarone oral medication as the patient is hypotensive and would avoid digoxin because of the CRISTINO and the need to also monitor digoxin level as outpatient. Patient's asthma score is elevated at at least 4 and recommend anticoagulation with heparin drip and if no procedures are planned then patient can be started on Eliquis 5 mg twice daily. Continue to monitor telemetry and keep potassium greater than 4 magnesium greater than 2.0 at all times. Patient has acute kidney injury along with hypotension on admission indicating possible dehydrated state and patient received at least 3 to 4 L of IV fluids in the emergency department with improvement of the blood pressure. Unclear reason for the CRISTINO and hypotension and will need to rule out any underlying sepsis and the primary team to workup for the same. Patient had a fall and appears to mostly mechanical fall but unable to give clear history regarding any dizziness or syncope. Review of the chart shows the patient did have previous falls which are mostly mechanical as he is wheelchair- bound because of his history of traumatic brain injury with right-sided Oracio paresis. CT x-rays and rest of the workup has been negative. Continue to monitor telemetry patient did have atrial fibrillation with RVR on presentation but rates have been less than 120 bpm and unlikely to be the cause for the fall. Hold off on any hypertensives because of the hypotension. Check TSH A1c and lipid profile for further cardiac risk stratification. 10/20/2024: Telemetry reviewed and rate appears to be around 100-120 bpm and still continues to be in atrial fibrillation with RVR Recommend patient to be started on oral metoprolol XL 25 mg once daily and continue to uptitrate rate for better control of heart rate based on the blood pressures. Echocardiogram completed 10/20/2024 showed severe LV dysfunction with an EF of 30 to 35% with global hypokinesis cannot rule out apical akinesis. Normal LV and RV size. Normal RV function. Mild LVH diastolic dysfunction cannot be graded due to A-fib. Estimated RVSP of 35 to 40 mmHg. Mild to moderate MR. Moderate MAC and mild TR. 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 Given the new onset severe systolic congestive heart failure with patient recommended a left and right heart cardiac catheterization. Patient unable to provide any consent and discussed this with the daughter who is the next of kin and provides the consent for all the procedures. Explained the risk and patient alternatives of performing a left heart cardiac ablation including the risks of bleeding, heart attack, stroke and in detail. Daughter wanted to speak to the rest of the family and will let us know. In anticipation of the cardiac catheterization recommended to stop the Eliquis completely and start the patient on heparin drip. Will plan for cardiac catheterization on Monday if the family agrees and will keep n.p.o. on Monday morning. Hall potassium greater than 4 and magnesium greater than 2.0 at all times. Check free T4, TSH and A1c for further cardiac risk ratification along with lipid profile. Management of rest of the medical conditions as per primary team and other consultants. Thank you for the consult and allowing me to participate in the care of the patient. Cardiology will continue to follow. Sourav Gagnon M.D. Interventional Cardiology Time Spent With Patient Time: Total time spent is greater than 50% in coordination of care (as documented) at patient's floor/unit and/or counseling patient:
[2024-10-20] MEDS: Heparin/D5w 25K 250 ML Ivpb 25,000 UNIT/250 ML BAG 12.958 UNIT IV (20:05)
[2024-10-20] MEDS: HEPARIN SOD INJ 5000 UNIT/ML VIAL 4000 UNIT IV (20:05)
[2024-10-21] VITALS (14 sets, daily range): BP systolic 116–153; BP diastolic 64–96; PULSE 81–101; RESP 15–24; TEMP 35.9–36.5; O2SAT 92–100; BMI 34.1; BMI 14.0
[2024-10-21] MEDS: LEVALBUTEROL RT 1.25 MG/0.5 ML NEBU INH ×4 (01:21→18:16)
[2024-10-21] MEDS: SODIUM CHLORIDE RT SOL 0.9% 3 ML NEBU INH ×3 (01:21→12:17)
[2024-10-21 02:30] LABS: Partial Thromboplastin Time 47.6 Seconds (22.0-36.0)
[2024-10-21] MEDS: HEPARIN SOD INJ 5000 UNIT/ML VIAL 2000 UNIT IVP (02:59)
[2024-10-21 03:39] LABS: Basophils # (Auto) 0.1 Thou/mm3 (0.0-0.2); Basophils % (Auto) 1 % (0-2.5); Eosinophils # (Auto) 0.2 Thou/mm3 (0.0-0.5); Eosinophils % (Auto) 2 % (0-10); Hematocrit 42.5 % (41.0-53.0); Hemoglobin 14.4 g/dL (13.5-16.0); Immature Granulocytes % (Auto) 0 % (0-0); Immature Granulocytes Auto 0.03 Thou/mm3 (0.00-0.00); Lymphocytes # (Auto) 2.9 Thou/mm3 (1.0-4.8); Lymphocytes % (Auto) 25 % (10-50); Mean Corpuscular HGB Conc 33.9 g/dl (31.0-37.0); Mean Corpuscular Hemoglobin 32.1 pg (25.0-35.0); Mean Corpuscular Volume 95 fL (80-100); Monocytes # (Auto) 0.8 Thou/mm3 (0.0-0.8); Monocytes % (Auto) 7 % (0-12); Neutrophils # (Auto) 7.9 Thou/mm3 (1.8-7.7); Neutrophils % (Auto) 66 % (37-80); Nucleated Red Blood Cell % 0 /100 WBC (0); Platelet Count 183 Thou/mm3 (140-440); RDW Standard Deviation 45.3 fL (35.1-43.9); Red Blood Count 4.48 Miln/mm3 (4.50-5.90); White Blood Count 11.9 Thou/mm3 (3.8-10.6)
[2024-10-21 03:42] LABS: Prothrombin Time 11.2 Seconds (9.0-12.2)
[2024-10-21 03:48] LABS: Alanine Aminotransferase 37 U/L (10-49); Albumin, Serum 3.8 gm/dL (3.4-4.8); Albumin/Globulin Ratio 1.4 (1.2-2.2); Alkaline Phosphatase 88 U/L (46-116); Anion Gap 5 (7-16); Aspartate Amino Transferase 26 U/L (0-34); BUN/Creatinine Ratio 12 Ratio (12-20); Bilirubin,Total 0.3 mg/dL (0.3-1.2); Blood Urea Nitrogen 11 mg/dL (9-23); Calcium 8.6 mg/dL (8.3-10.6); Calcium (Corrected) 8.8 mg/dL (8.5-10.1); Chloride 105 mMol/L (98-107); Creatinine (Component) 0.9 mg/dL (0.6-1.3); Estimated Creatinine Clearance 83.2 mL/min (>60); Globulin 2.7 gm/dL (2.3-3.5); Glucose 109 mg/dL (74-106); Magnesium 2.1 mg/dL (1.6-2.6); Osmolality,Calculated 276 (275-295); Potassium 4.5 mMol/L (3.4-5.1); Sodium 138 mMol/L (136-145); Total Protein 6.5 gm/dL (5.7-8.2); eGFR > 60 See Note
[2024-10-21] MEDS: GABAPENTIN 300 MG CAPSULE 600 MG PO ×3 (06:03→21:14)
[2024-10-21] MEDS: METOPROLOL SUCCINATE XL 25 MG TABCR PO ×2 (08:34→11:45)
[2024-10-21] MEDS: AMIODARONE HCL 200 MG TABLET PO ×2 (08:35→21:14)
--- NOTE | 2024-10-21 09:00 | ESPR_ITS ---
Documentation for date of: 10/21/24 Subjective Subjective Interval history: Patient seen and examined at bedside. No new complaints including any cardiac complaints. Patient breathing is better today. Overnight patient was in atrial fibrillation with RVR Blood pressure was on the lower side and patient was started on amiodarone drip after bolus as per protocol. Recommend to continue amiodarone drip and once the to be seen this patient should be started on amiodarone 200 mg twice daily for 1 month and then amiodarone 200 mg daily Continue metoprolol XL 25 mg once daily in addition for rate control if the blood pressure is permissible. Echocardiogram completed 10/20/2024 showed severe LV dysfunction with an EF of 30 to 35% with global hypokinesis cannot rule out apical akinesis. Normal LV and RV size. Normal RV function. Mild LVH diastolic dysfunction cannot be graded due to A-fib. Estimated RVSP of 35 to 40 mmHg. Mild to moderate MR. Moderate MAC and mild TR. 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 If patient is medically stable then plan to do left and right cardiac catheterization given the new onset severe systolic congestive heart failure. Discussed with the daughter yesterday who is the next of the kin and provided consent for the patient. Patient and the daughter explained the risk benefits and alternatives of performing a left heart cardiac catheterization including the risk of bleeding, heart attack, stroke and in detail. Will reevaluate in the morning for cardiac catheterization as it will be more than 48 hours since the last dose of Eliquis. Keep potassium greater than 4 and magnesium greater than 2.0 at all times. Patient will need goal-directed medical therapy for this is a systolic congestive heart failure but only on metoprolol XL at the present point of time and eventually will need to be on Entresto or ARB and spironolactone based on the renal function and blood pressures. Exam Vital Signs Temp Pulse Resp BP Pulse Ox O2 Del Method O2 Flow Rate 97.5 F 90 20 114/60 99 Nasal Cannula 1 10/22/24 00:00 10/22/24 00:08 10/22/24 00:08 10/22/24 00:00 10/22/24 00:08 10/22/24 00:00 10/22/24 00:08 Narrative Exam General: Alert and oriented x3. In no acute distress on nasal canula. Eyes: Pupils are equal and reactive to light bilaterally. HEENT: Atraumatic, normocephalic. No JVD noted. Mucosa moist. Cardiovascular: Normal S1 and S2. Irregularly irregular, 2 or 6 systolic murmur at the apex, no peripheral pitting edema noted. Respiratory: Bilateral air entry present but decreased at the bases and on oxygen via nasal cannula Abdomen: Soft, nontender, nondistended. Skin: No rash. Warm to touch. Musculoskeletal: No gross injuries. Able to move all 4 extremities. Neuro: Alert and oriented x3. No focal neuro deficits. 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 EKG showed atrial fibrillation with a right bundle branch block initially with rate controlled at 98 bpm. Later on patient was in RVR. Cardiology consulted for new onset atrial fibrillation with RVR. 1. Atrial fibrillation with RVR-new onset 2. Acute hypoxic respiratory failure-unclear etiology on oxygen via nasal cannula 3. Acute kidney injury 4. Fall-appears mechanical 5. Traumatic brain injury status post right hemiparesis more than 25 years ago and wheelchair-bound 6. Essential hypertension 7. Hyperlipidemia 8. Morbid obesity 9. Restless leg syndrome 10. BPH New onset atrial fibrillation with RVR: Patient does not have a history of atrial fibrillation with rate controlled at 90 bpm but later on the telemetry did show elevated heart rate indicating atrial fibrillation with RVR. Recommended to continue to monitor telemetry for now as the heart rate has not increased greater than 120 bpm. Patient was hypotensive on arrival with acute kidney injury and hypotension which probably secondary to dehydration. If patient goes into RVR recommend event drip with amiodarone oral medication as the patient is hypotensive and would avoid digoxin because of the CRISTINO and the need to also monitor digoxin level as outpatient. Patient's asthma score is elevated at at least 4 and recommend anticoagulation with heparin drip and if no procedures are planned then patient can be started on Eliquis 5 mg twice daily. Continue to monitor telemetry and keep potassium greater than 4 magnesium greater than 2.0 at all times. Patient has acute kidney injury along with hypotension on admission indicating possible dehydrated state and patient received at least 3 to 4 L of IV fluids in the emergency department with improvement of the blood pressure. Unclear reason for the CRISTINO and hypotension and will need to rule out any underlying sepsis and the primary team to workup for the same. Patient had a fall and appears to mostly mechanical fall but unable to give clear history regarding any dizziness or syncope. Review of the chart shows the patient did have previous falls which are mostly mechanical as he is wheelchair- bound because of his history of traumatic brain injury with right-sided [place] paresis. CT x-rays and rest of the workup has been negative. Continue to monitor telemetry patient did have atrial fibrillation with RVR on presentation but rates have been less than 120 bpm and unlikely to be the cause for the fall. Hold off on any hypertensives because of the hypotension. Check TSH A1c and lipid profile for further cardiac risk stratification. 10/21/2024: Patient breathing is better today. Overnight patient was in atrial fibrillation with RVR Blood pressure was on the lower side and patient was started on amiodarone drip after bolus as per protocol. Recommend to continue amiodarone drip and once the to be seen this patient should be started on amiodarone 200 mg twice daily for 1 month and then amiodarone 200 mg daily Continue metoprolol XL 25 mg once daily in addition for rate control if the blood pressure is permissible. Echocardiogram completed 10/20/2024 showed severe LV dysfunction with an EF of 30 to 35% with global hypokinesis cannot rule out apical akinesis. Normal LV and RV size. Normal RV function. Mild LVH diastolic dysfunction cannot be graded due to A-fib. Estimated RVSP of 35 to 40 mmHg. Mild to moderate MR. Moderate MAC and mild TR. 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 If patient is medically stable then plan to do left and right cardiac catheterization given the new onset severe systolic congestive heart failure. Discussed with the daughter yesterday who is the next of the kin and provided consent for the patient. Patient and the daughter explained the risk benefits and alternatives of performing a left heart cardiac catheterization including the risk of bleeding, heart attack, stroke and in detail. Will reevaluate in the morning for cardiac catheterization as it will be more than 48 hours since the last dose of Eliquis. Keep potassium greater than 4 and magnesium greater than 2.0 at all times. Patient will need goal-directed medical therapy for this is a systolic congestive heart failure but only on metoprolol XL at the present point of time and eventually will need to be on Entresto or ARB and spironolactone based on the renal function and blood pressures. Management of rest of the medical conditions as per primary team and other consultants. Thank you for the consult and allowing me to participate in the care of the patient. Cardiology will continue to follow. Sourav Gagnon M.D. Interventional Cardiology Time Spent With Patient Time: Total time spent is greater than 50% in coordination of care (as documented) at patient's floor/unit and/or counseling patient:
--- NOTE | 2024-10-21 09:38 | PD.RESPRO ---
Documentation for date of: 10/21/24 Subjective Subjective Interval history: 10/20/2024: Pt examined at bedside. Overnight events included pt going into afib with RVR, rate in the 150s, Amio drip was started for patient as BP was borderline low. Pt reports he is denying any CP, SOB or palpitations at this time. Says he is feeling good, no other complaints at this time. BUN/Cr 14 and 0.9 respectively, Mg, 1.8, potassium 4.0, bicarb 29, glucose 117, coag panel unremarkable, hemoglobin 12.6, white count 8.9. 10/21/2024: Pt examined at bedside today. No acute overnight vents, pt remains in fib, rate 140s and reached a max rate 150. Pt reports he is doing well and is currently eating. Denies CP, SOB or palpitations at this time. Says he is feeling good and is agreeable to getting cardiac cath tomorrow. BUN/Cr 11 and 0.9 respectively, Mg 2.1, Phos 3, ALT 37 and AST 26, UDS shows Meth and THC, wbc 11.9, Hgb 14.4. Exam Vital Signs Temp Pulse Resp BP Pulse Ox O2 Del Method O2 Flow Rate 96.7 F L 91 23 H 143/81 H 97 Nasal Cannula 2 10/21/24 08:00 10/21/24 08:35 10/21/24 08:00 10/21/24 08:35 10/21/24 08:00 10/21/24 08:00 10/21/24 08:00 Narrative Exam General: AAOx3, mild distress, Frisian-speaking male, obese, wearing numerous bracelets on arms, upright eating breakfast HEENT: Dry mucous membranes, conjunctiva clear, EOMI, PERRLA, Cardiovascular: S1, S2, radial pulses +2 bilat, irregularly irregular, tachycardic Pulmonary: Difficulty appreciating breath sounds, however possible wheezing heard upon auscultation GI: Abdomen does seem a bit firm upon palpation Extremities: No presence of trace or pitting edema in lower extremities bilaterally, dorsalis pedis pulses +2 bilaterally Neuro: AAOx3, right sided hemiparesis, wheelchair-bound Psych: Cooperative Objective Labs 10/22/24 05:23 10/22/24 05:23 Labs: Laboratory Results - last 24 hr 10/20/24 10/21/24 17:00 01:53 WBC 11.9 H RBC 4.48 L Hgb 14.4 Hct 42.5 MCV 95 MCH 32.1 MCHC 33.9 RDW Std Deviation 45.3 H Plt Count 183 Neut % (Auto) 66 Lymph % (Auto) 25 [place] % (Auto) 7 Eos % (Auto) 2 Baso % (Auto) 1 Neut # (Auto) 7.9 H Lymph # (Auto) 2.9 [place] # (Auto) 0.8 Eos # (Auto) 0.2 Baso # (Auto) 0.1 Immature Gran # (Auto) 0.03 H Absolute Nucleated RBC 0.00 Immature Gran % 0 Nucleated RBC % 0 PT 11.2 INR 1.0 APTT 47.6 H D Sodium 138 Potassium 4.5 D Chloride 105 Carbon Dioxide 28.0 Anion Gap 5 L BUN 11 Creatinine 0.9 Estim Creat Clear Calc 83.2 eGFR > 60 BUN/Creatinine Ratio 12 Glucose 109 H Calculated Osmolality 276 Calcium 8.6 Corrected Calcium 8.8 Phosphorus 3.0 Magnesium 2.1 Total Bilirubin 0.3 AST 26 ALT 37 Alkaline Phosphatase 88 Total Protein 6.5 Albumin 3.8 D Globulin 2.7 Albumin/Globulin Ratio 1.4 Ur Random Creatinine 54 Ur Random Sodium 77.2 Urine Opiates Screen Negative Urine Fentanyl Screen Negative Ur Barbiturates Screen Negative U Amphetamin/Meth Scrn Positive A U Benzodiazepines Scrn Negative U Cocaine Metab Screen Negative U Marijuana (THC) Screen Positive A Quality Measures Quality Measures none Advance care planning discussed with:: patient and child Assessment & Plan Assessment Current Active Medications: Generic Name Dose Route Start Last Admin Trade Name Freq PRN Reason Stop Dose Admin Acetaminophen 650 mg 10/19/24 13:11 10/19/24 14:12 Acetaminophen 325 Mg Tablet PO 11/18/24 13:10 650 mg Q6H PRN Administration Fever >100 or pain 1-3 Amiodarone HCl 200 mg 10/20/24 09:00 10/21/24 08:35 Amiodarone Hcl 200 Mg Tablet PO 11/19/24 08:59 200 mg BID KAYLA Administration Protocol Apixaban 5 mg 10/19/24 21:00 10/20/24 09:41 Apixaban 2.5 Mg Tablet PO 11/18/24 20:59 5 mg BID KAYLA Administration Gabapentin 600 mg 10/19/24 14:00 10/21/24 06:03 Gabapentin 300 Mg Capsule PO 11/18/24 13:59 600 mg TID KAYLA Administration Heparin Sodium/Dextrose 25,000 unit in 250 mls @ 12.958 mls/hr 10/20/24 18:45 10/21/24 03:00 Heparin In D5w Ivpb IV 11/03/24 18:44 14 units/kg/hr .[id number] KAYLA 15.117 mls/hr Titration Protocol 12 UNITS/KG/HR Levalbuterol HCl 1.25 mg 10/19/24 19:00 10/21/24 06:42 Levalbuterol Rt 1.25 Mg/0.5 Ml Nebu INH 11/18/24 18:59 1.25 mg Q6HRRT KAYLA Administration Metoprolol Succinate 25 mg 10/20/24 10:00 10/21/24 08:34 Metoprolol Succinate Xl 25 Mg Tabcr PO 11/19/24 09:59 25 mg QDAY KAYLA Administration Ondansetron HCl 4 mg 10/19/24 13:11 Ondansetron Inj 2 Mg/Ml Inj 2 Ml IV 11/18/24 13:10 Q6H PRN NAUSEA OR VOMITING Protocol Sodium Chloride 3 ml 10/19/24 13:11 10/21/24 06:45 Sodium Chloride Rt Estrellita 0.9% 3 Ml Nebu INH 11/18/24 13:10 3 ml PRN PRN Administration SOLN Plan Assessment Nura is a 78 y/o with PMHx of TBI, R sided hemiparesis (wheelchair bound), HTN, obesity, BPH who is admitted for new onset afib with RVR. #New onset of A-fib #Hx of RBBB # HFpEF with EF 35% with associated with mild TR, LA dilatation and right ventricle dysfunction #Acute hypoxic respiratory failure #? CAD [id number]: 3 points HAS-BLED: 1 point, low risk of major bleeding Rate:100s Rhythm:Irregularly irregular AC:None at home On previous ekgs, there has been no hx of afib, however, hx of RBBB Preliminary echo read shows possible EF of 35% mild right ventricle dysfunction, LA dilatation, mild TR Lipid panel shows total cholesterol 153, triglycerides 205, LDL 77 TSH 0.74; A1c 5.9 Patient may need cardiac cath to assess for ischemic heart disease Amio drip started overnight as patient went into A-fib with RVR overnight Echo report shows Severe LV dysfuntion with estimated EF of 30-35% with global hyopkinesis. Cannot r/o any apical akinesis. Normal LV size. Mild LVH. Diastolic dysfunction cannot be graded due to afib. Normal RV size and systolic function. Estimated RVSP 35 - 40 mmhg. Mild to moderate MR. Moderate MAC. Mild TR. Plan: - Cardiology Consulted, apprec recs - Keep Magnesium and potassium above two and four respectively - Amio 200 mg twice daily p.o. - Continue with Heparin drip - Increased metoprolol XL 50 mg p.o. - Npo midnight, Cath tomorrow #CRISTINO, resolved DDx: Most likely prerenal ideology, however seems that patient may have BPH history, could be postobstructive uropathy Was given 4 L bolus in ED With concern for poor oral intake, caregiver is unable to provide much information in regards to patient's oral intake Creatinine 0.9 today Plan: ? Renally dose medicines ? Avoid nephrotoxic agents #Hx of HTN #Hx of HLD Has some beta ciarra, CCB and lisinopril upon initial med rec Total cholesterol 153, triglycerides 205, LDL 77 Will resume ARB/AMY after cath Plan: -Continue home Crestor 20 mg -Patient will need to be on GDMT therapy which will be added ?Increased Metoprolol XL 50 mg p.o. #History of TBI #Right-sided hemiparesis Speech recommends dysphagia diet Plan: ? Aspiration precautions #History of BPH Plan: ? Resumed home Flomax 0.4 mg #Polysubstance abuse #Concern for Neglect Daughter reports that father uses drugs and that is why he lives with a supervisor air conditioning installer and not with her UDS ordered and shows meth and marjiuana Plan: - Referral to social research assistant #Health Maintenance Disposition: Telemetry DVT prophylaxis: Heparin drip GI prophylaxis: Protonix Diet: NPO at midnight CODE STATUS:Full Patient seen and care discussed with my senior resident, Dr. Ba, and my attending physician, Dr. Serina Ro, PGY-1 Attending Provider Attestation/Addendum I reviewed labs, imaging, EKG, home medications and prior available records. Face to face evaluation was performed by me. I have personally examined the patient and discussed assessment and plan with the IM team. I reviewed the resident note and agree with the plan with exceptions as below. Ground-level fall Generalized weakness Acute hypotension CRISTINO Atrial fibrillation with rapid ventricular rhythm Dehydration History of traumatic brain injury Patient went into A-fib with RVR. Started amiodarone drip. Started metoprolol 25 mg XL heart rate improved. Echocardiogram showed HFrEF with EF of 35%. Patient does not look volume overloaded. Discussed with cardiology: Plan for cardiac catheterization on 10/22 Ordered U-Tox that was positive for methamphetamine. Possibly related to his cardiomyopathy Monitor kidney function: Creatinine improved. Avoid nephrotoxins. Renally dosed medications Ordered PT evaluation
[2024-10-21 10:30] LABS: Partial Thromboplastin Time 52.4 Seconds (22.0-36.0)
[2024-10-21] MEDS: TAMSULOSIN HCL 0.4 MG CAPSULE PO (11:45)
--- NOTE | 2024-10-21 11:56 | PC.PT ---
PT eval only. Patient is wheelchair bound. He is able to transfer xI. Patient is at his PLOF. RN notified.
[2024-10-21] MEDS: Heparin/D5w 25K 250 ML Ivpb 25,000 UNIT/250 ML BAG 15.117 UNIT IV (13:54)
[2024-10-21 16:25] LABS: Partial Thromboplastin Time 63.2 Seconds (22.0-36.0)
[2024-10-21 23:14] LABS: Partial Thromboplastin Time 67.2 Seconds (22.0-36.0)
[2024-10-22] VITALS (21 sets, daily range): BP systolic 114–154; BP diastolic 60–93; PULSE 77–92; RESP 2–23; TEMP 36.1–36.7; O2SAT 93–99; BMI 33.4
[2024-10-22] MEDS: LEVALBUTEROL RT 1.25 MG/0.5 ML NEBU INH ×3 (00:05→18:00)
[2024-10-22] MEDS: GABAPENTIN 300 MG CAPSULE 600 MG PO ×2 (05:34→21:30)
[2024-10-22 05:46] LABS: Basophils # (Auto) 0.1 Thou/mm3 (0.0-0.2); Basophils % (Auto) 1 % (0-2.5); Eosinophils # (Auto) 0.2 Thou/mm3 (0.0-0.5); Eosinophils % (Auto) 3 % (0-10); Hematocrit 37.4 % (41.0-53.0); Hemoglobin 12.9 g/dL (13.5-16.0); Immature Granulocytes % (Auto) 0 % (0-0); Immature Granulocytes Auto 0.01 Thou/mm3 (0.00-0.00); Lymphocytes # (Auto) 1.6 Thou/mm3 (1.0-4.8); Lymphocytes % (Auto) 23 % (10-50); Mean Corpuscular HGB Conc 34.5 g/dl (31.0-37.0); Mean Corpuscular Hemoglobin 31.9 pg (25.0-35.0); Mean Corpuscular Volume 92 fL (80-100); Monocytes # (Auto) 0.6 Thou/mm3 (0.0-0.8); Monocytes % (Auto) 9 % (0-12); Neutrophils # (Auto) 4.5 Thou/mm3 (1.8-7.7); Neutrophils % (Auto) 64 % (37-80); Nucleated Red Blood Cell % 0 /100 WBC (0); Platelet Count 188 Thou/mm3 (140-440); RDW Standard Deviation 43.6 fL (35.1-43.9); Red Blood Count 4.05 Miln/mm3 (4.50-5.90); White Blood Count 6.9 Thou/mm3 (3.8-10.6)
[2024-10-22 06:08] LABS: Alanine Aminotransferase 26 U/L (10-49); Albumin, Serum 3.5 gm/dL (3.4-4.8); Albumin/Globulin Ratio 1.4 (1.2-2.2); Alkaline Phosphatase 89 U/L (46-116); Anion Gap 6 (7-16); Aspartate Amino Transferase 18 U/L (0-34); BUN/Creatinine Ratio 13 Ratio (12-20); Bilirubin,Total 0.7 mg/dL (0.3-1.2); Blood Urea Nitrogen 10 mg/dL (9-23); Calcium 8.7 mg/dL (8.3-10.6); Calcium (Corrected) 9.1 mg/dL (8.5-10.1); Carbon Dioxide 32.4 mMol/L (20.0-31.0); Chloride 102 mMol/L (98-107); Creatinine (Component) 0.8 mg/dL (0.6-1.3); Estimated Creatinine Clearance 92.6 mL/min (>60); Globulin 2.5 gm/dL (2.3-3.5); Glucose 98 mg/dL (74-106); Magnesium 1.7 mg/dL (1.6-2.6); Osmolality,Calculated 278 (275-295); Phosphorous 3.1 mg/dL (2.4-5.1); Sodium 140 mMol/L (136-145); eGFR > 60 See Note
[2024-10-22 06:24] LABS: INR 1.1 (0.9-1.3); Partial Thromboplastin Time 61.6 Seconds (22.0-36.0); Prothrombin Time 11.5 Seconds (9.0-12.2)
[2024-10-22] MEDS: SODIUM CHLORIDE RT SOL 0.9% 3 ML NEBU INH (06:43)
[2024-10-22] MEDS: Magnesium Sulfate 2 GM Ivpb 2 GM/50 ML BAG IV (08:33)
[2024-10-22] MEDS: METOPROLOL SUCCINATE XL 25 MG TABCR 50 MG PO (08:37)
[2024-10-22] MEDS: TAMSULOSIN HCL 0.4 MG CAPSULE PO (08:37)
[2024-10-22] MEDS: Heparin/D5w 25K 250 ML Ivpb 25,000 UNIT/250 ML BAG 15.117 UNIT IV (08:37)
[2024-10-22] MEDS: AMIODARONE HCL 200 MG TABLET PO ×2 (08:37→21:31)
--- NOTE | 2024-10-22 09:14 | ESPR_ITS ---
Documentation for date of: 10/22/24 Subjective Subjective Interval history: Patient seen and examined at bedside. No new complaints including any cardiac complaints. Patient is planned for the left and right heart cardiac catheterization as detailed yesterday given the new onset systolic heart failure. Consent obtained by the daughter and was explained all the responses and alternatives of the left heart catheterization including the risk of bleeding or attack and stroke and in detail. Heart rate is well-controlled at the present moment on amiodarone drip. Recommend to continue amiodarone drip and once the to be seen this patient should be started on amiodarone 200 mg twice daily for 1 month and then amiodarone 200 mg daily Continue metoprolol XL 25 mg once daily in addition for rate control if the blood pressure is permissible. Keep potassium greater than 4 and magnesium greater than 2.0 at all times. Echocardiogram completed 10/20/2024 showed severe LV dysfunction with an EF of 30 to 35% with global hypokinesis cannot rule out apical akinesis. Normal LV and RV size. Normal RV function. Mild LVH diastolic dysfunction cannot be graded due to A-fib. Estimated RVSP of 35 to 40 mmHg. Mild to moderate MR. Moderate MAC and mild TR. Patient does have new onset severe systolic congestive heart failure and unclear etiology for now Possibly patient has tachycardia induced cardiomyopathy and due to undiagnosed atrial fibrillation with RVR previously but will need to rule out other causes including any ischemic causes. Patient will need goal-directed medical therapy for this is a systolic congestive heart failure but only on metoprolol XL at the present point of time and eventually will need to be on Entresto or ARB and spironolactone based on the renal function and blood pressures. Exam Vital Signs Temp Pulse Resp BP Pulse Ox O2 Del Method O2 Flow Rate 97.7 F 93 21 H 121/61 98 Nasal Cannula 2 10/23/24 08:00 10/23/24 08:22 10/23/24 08:00 10/23/24 08:22 10/23/24 08:00 10/23/24 08:00 10/23/24 08:00 FiO2 2 10/23/24 08:00 Narrative Exam General: Alert and oriented x3. In no acute distress on nasal canula. Eyes: Pupils are equal and reactive to light bilaterally. HEENT: Atraumatic, normocephalic. No JVD noted. Mucosa moist. Cardiovascular: Normal S1 and S2. Irregularly irregular, 2 or 6 systolic murmur at the apex, no peripheral pitting edema noted. Respiratory: Bilateral air entry present but decreased at the bases and on oxygen via nasal cannula Abdomen: Soft, nontender, nondistended. Skin: No rash. Warm to touch. Musculoskeletal: No gross injuries. Able to move all 4 extremities. Neuro: Alert and oriented x3. No focal neuro deficits. Psych: Normal affect and mood Objective Labs 10/23/24 05:48 10/23/24 05:48 Labs: Laboratory Results - last 24 hr 10/23/24 05:48 WBC 7.3 RBC 4.19 L Hgb 13.2 L Hct 39.1 L MCV 93 MCH 31.5 MCHC 33.8 RDW Std Deviation 43.1 Plt Count 202 Neut % (Auto) 64 Lymph % (Auto) 23 [place] % (Auto) 9 Eos % (Auto) 3 Baso % (Auto) 1 Neut # (Auto) 4.6 Lymph # (Auto) 1.7 [place] # (Auto) 0.7 Eos # (Auto) 0.2 Baso # (Auto) 0.0 Immature Gran # (Auto) 0.01 H Absolute Nucleated RBC 0.00 Immature Gran % 0 Nucleated RBC % 0 Sodium 141 Potassium 4.7 D Chloride 104 Carbon Dioxide 33.6 H Anion Gap 3 L BUN 10 Creatinine 1.0 Estim Creat Clear Calc 73.7 eGFR > 60 BUN/Creatinine Ratio 10 L Glucose 102 Calculated Osmolality 280 Calcium 9.1 Corrected Calcium 9.3 Magnesium 2.0 Total Bilirubin 0.5 AST 15 ALT 22 Alkaline Phosphatase 87 Total Protein 6.3 Albumin 3.7 Globulin 2.6 Albumin/Globulin Ratio 1.4 Assessment & Plan A&P Narrative A 78-year-old male with a past medical history of 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 EKG showed atrial fibrillation with a right bundle branch block initially with rate controlled at 98 bpm. Later on patient was in RVR. Cardiology consulted for new onset atrial fibrillation with RVR. 1. Atrial fibrillation with RVR-new onset 2. Acute hypoxic respiratory failure-unclear etiology on oxygen via nasal cannula 3. Acute kidney injury 4. Fall-appears mechanical 5. Traumatic brain injury status post right hemiparesis more than 25 years ago and wheelchair-bound 6. Essential hypertension 7. Hyperlipidemia 8. Morbid obesity 9. Restless leg syndrome 10. BPH New onset atrial fibrillation with RVR: Patient does not have a history of atrial fibrillation with rate controlled at 90 bpm but later on the telemetry did show elevated heart rate indicating atrial fibrillation with RVR. Recommended to continue to monitor telemetry for now as the heart rate has not increased greater than 120 bpm. Patient was hypotensive on arrival with acute kidney injury and hypotension which probably secondary to dehydration. If patient goes into RVR recommend event drip with amiodarone oral medication as the patient is hypotensive and would avoid digoxin because of the CRISTINO and the need to also monitor digoxin level as outpatient. Patient's asthma score is elevated at at least 4 and recommend anticoagulation with heparin drip and if no procedures are planned then patient can be started on Eliquis 5 mg twice daily. Continue to monitor telemetry and keep potassium greater than 4 magnesium greater than 2.0 at all times. Patient has acute kidney injury along with hypotension on admission indicating possible dehydrated state and patient received at least 3 to 4 L of IV fluids in the emergency department with improvement of the blood pressure. Unclear reason for the CRISTINO and hypotension and will need to rule out any underlying sepsis and the primary team to workup for the same. Patient had a fall and appears to mostly mechanical fall but unable to give clear history regarding any dizziness or syncope. Review of the chart shows the patient did have previous falls which are mostly mechanical as he is wheelchair- bound because of his history of traumatic brain injury with right-sided [place] paresis. CT x-rays and rest of the workup has been negative. Continue to monitor telemetry patient did have atrial fibrillation with RVR on presentation but rates have been less than 120 bpm and unlikely to be the cause for the fall. Hold off on any hypertensives because of the hypotension. Check TSH A1c and lipid profile for further cardiac risk stratification. 10/22/2024: No new complaints including any cardiac complaints. Patient is planned for the left and right heart cardiac catheterization as detailed yesterday given the new onset systolic heart failure. Consent obtained by the daughter and was explained all the responses and alternatives of the left heart catheterization including the risk of bleeding or attack and stroke and in detail. Heart rate is well-controlled at the present moment on amiodarone drip. Recommend to continue amiodarone drip and once the to be seen this patient should be started on amiodarone 200 mg twice daily for 1 month and then amiodarone 200 mg daily Continue metoprolol XL 25 mg once daily in addition for rate control if the blood pressure is permissible. Keep potassium greater than 4 and magnesium greater than 2.0 at all times. Echocardiogram completed 10/20/2024 showed severe LV dysfunction with an EF of 30 to 35% with global hypokinesis cannot rule out apical akinesis. Normal LV and RV size. Normal RV function. Mild LVH diastolic dysfunction cannot be graded due to A-fib. Estimated RVSP of 35 to 40 mmHg. Mild to moderate MR. Moderate MAC and mild TR. Patient does have new onset severe systolic congestive heart failure and unclear etiology for now Possibly patient has tachycardia induced cardiomyopathy and due to undiagnosed atrial fibrillation with RVR previously but will need to rule out other causes including any ischemic causes. Patient will need goal-directed medical therapy for this is a systolic congestive heart failure but only on metoprolol XL at the present point of time and eventually will need to be on Entresto or ARB and spironolactone based on the renal function and blood pressures. Management of rest of the medical conditions as per primary team and other consultants. Thank you for the consult and allowing me to participate in the care of the patient. Cardiology will continue to follow. Sourav Gagnon M.D. Interventional Cardiology Time Spent With Patient Time: Total time spent is greater than 50% in coordination of care (as documented) at patient's floor/unit and/or counseling patient:
--- NOTE | 2024-10-22 12:30 | PD.CARDCATH ---
Cardiac Cath Procedure Procedure Name Date of procedure: 10/22/2024 generator switchboard operator: Sourav Gagnon MD Procedures performed: 1. Left and right heart cardiac catheterization including left and right coronary angiograms as well as left ventriculogram-CPT code 30002 2. Ascending aorta angiogram-CPT code 93122 3. Moderate conscious sedation for 30 minutes 4. Ultrasound-guided access of the right radial artery as well as the right femoral vein Procedure Narrative Full report to follow Left heart cardiac catheterization showed only mild diffuse disease involving all the arteries including left main LAD, LCx as well as the RCA. Normal LVEDP at 14 mmHg and LVEF is severely decreased at 35%. Recommend aggressive medical treatment with aspirin statin and beta-ciarra for the mild CAD. Right heart cardiac catheterization showed patient had mildly elevated pulmonary pressures with mean of 32 mmHg. Mean RA pressure-16 mmHg. RV-41/13 mmHg with a mean of 16 mmHg PA pressures 42/25 mmHg with a mean of 32 mmHg. PCWP mean was 16 mmHg PA saturation was 70.2% AO saturation 89% Cardiac output and cardiac index were 8 L/min as well as cardiac index of 3.61 L/min/m?
--- NOTE | 2024-10-22 13:24 | PC.NURSE ---
1324 patient is awake, alert, breathing unlabored, s/p LHC and RHC by dr Gagnon, dressing to right groin dry with no bleeding or hematoma, TR band present to right wrist. Report received from Clovis ESTRADA, patient to recover in mason tender restoration labor until TR band is off. Ok to Discontinue heparin drip per RN report.
--- NOTE | 2024-10-22 14:26 | PC.SS ---
Out pt PT submitted to [facility] PT FAX [phone]
--- NOTE | 2024-10-22 14:33 | PC.NURSE ---
patient awake, alert, breathing unlabored, dressing to right wrist and right groin dry with no bleeding/hematoma, patient ate 75% meal, tolerated well with no nausea/vomiting, report given to Clovis ESTRADA
--- NOTE | 2024-10-22 14:38 | PC.SS ---
SS attempted to meet with pt to discuss DC planning and outpt PT referral that SS submitted, [facility].
--- NOTE | 2024-10-22 14:41 | PC.SS ---
SS attempted to make over the phone contact with pt dtr to discuss IMM and DC planning, no answer. VM left.
--- NOTE | 2024-10-22 15:03 | PC.SS ---
SS met with pt dtr Fabiana at bedside to discuss DC planning, SS went over IMM with Fabiana, she signed on pt behalf. Copy provided to Fabiana, original placed in chart sunil (physical chart with pt in sleep lab technologist). Fabiana had concerns for pt to return home as he lives alone with only a [facility] caregiver. SS informed Fabiana, PT worked with pt and he is at baseline and is safe to return home with outpt PT. Fabiana stated she rather have home health P as the pt is wheelchair bound and it is difficult for pt to get in and out of a vehicle. SS called Dr. Ba to inquire on HH PT, Dr. Ba stated she will have Dr. Smalls put in the order. While on phone with Dr. Ba, Fabiana asked to speak to her. Dr. Ba spoke to Fabiana in regards to Cardiac a procedure and findings. Once Fabiana hung up with Dr. Ba, Fabiana stated to SS that she does not understand why we can not send the pt to SNF when his heart is not functioning at 100%. SS spoke to RN, Maxine if she can please speak to dtr in regards to procedure as it is out of SS scope of practice she stated yes she will speak to her.
--- NOTE | 2024-10-22 15:54 | PC.NURSE ---
Pt back from kiln labourer at this time. Pt's vital signs: T:97.4 temporal, 77HR, 18RR, 154/79 BP. Pt has coban wrap around (R) wrist, no signs of bleeding or hematoma. Pt also has gauze and tegaderm on (R) groin area no signs of bleeding or hematoma.
--- NOTE | 2024-10-22 16:09 | PC.NURSE ---
1510 patient is awake, alert, breathing unlabored, TR band has been removed by Omero ESTRADA at 1505, no bleeding or hematoma noted to right wrist dressing. Report received from Omero ESTRADA, will get patient ready to go back to tele room. 1535 patient is awake, alert, breathing unlabored, dressing to right wrist and right groin dry with no bleeding or hematoma, report given to Sybil ESTRADA, patient transferred back to tele room 260 with tele monitoring box.
--- NOTE | 2024-10-22 16:23 | PC.SS ---
Follow up note: SS received update that patient's daughter requested SNF placement. PT recommends o/p PT. SS offered home health services. Patient is wheelchair bound. SS sent inquiry through [employer] to determine if insurance will pay for SNF short term. D/c tentatively for tomorrow.
--- NOTE | 2024-10-22 17:40 | ESPR_ITS ---
Documentation for date of: 10/22/24 Subjective Subjective Interval history: 10/20/2024: Pt examined at bedside. Overnight events included pt going into afib with RVR, rate in the 150s, Amio drip was started for patient as BP was borderline low. Pt reports he is denying any CP, SOB or palpitations at this time. Says he is feeling good, no other complaints at this time. BUN/Cr 14 and 0.9 respectively, Mg, 1.8, potassium 4.0, bicarb 29, glucose 117, coag panel unremarkable, hemoglobin 12.6, white count 8.9. 10/21/2024: Pt examined at bedside today. No acute overnight vents, pt remains in fib, rate 140s and reached a max rate 150. Pt reports he is doing well and is currently eating. Denies CP, SOB or palpitations at this time. Says he is feeling good and is agreeable to getting cardiac cath tomorrow. BUN/Cr 11 and 0.9 respectively, Mg 2.1, Phos 3, ALT 37 and AST 26, UDS shows Meth and THC, wbc 11.9, Hgb 14.4. 10/22/2024: Pt examined at bedside today. No acute overnight events, pt remains to be in fib and rate controlled in the 90s seen on Tele. Pt reports he is doing well. He has not felt chest pain or SOB. He is still agreeable to getting cardiac cath today at 11AM. No other complaints at this time. Potassium 4, magnesium 1.7, BUN/creatinine 10 and 0 point effectively, white count 6.9, hemoglobin 13. Exam Vital Signs Temp Pulse Resp BP Pulse Ox O2 Del Method O2 Flow Rate 97.4 F 77 18 154/79 H 98 Nasal Cannula 2 10/22/24 16:00 10/22/24 16:00 10/22/24 16:00 10/22/24 16:00 10/22/24 16:00 10/22/24 16:10/22/24 16:00 FiO2 2 10/22/24 10:40 Narrative Exam General: AAOx3, mild distress, Stateless-speaking male, obese, wearing numerous bracelets on arms, upright eating breakfast HEENT: Dry mucous membranes, conjunctiva clear, EOMI, PERRLA, Cardiovascular: S1, S2, radial pulses +2 bilat, irregularly irregular, tachycardic Pulmonary: Difficulty appreciating breath sounds, however possible wheezing heard upon auscultation GI: Abdomen does seem a bit firm upon palpation Extremities: No presence of trace or pitting edema in lower extremities bilaterally, dorsalis pedis pulses +2 bilaterally Neuro: AAOx3, right sided hemiparesis, wheelchair-bound Psych: Cooperative Objective Labs 10/23/24 05:48 10/23/24 05:48 Labs: Laboratory Results - last 24 hr 10/21/24 10/22/24 21:20 05:23 WBC 6.9 D RBC 4.05 L Hgb 12.9 L Hct 37.4 L MCV 92 MCH 31.9 MCHC 34.5 RDW Std Deviation 43.6 Plt Count 188 Neut % (Auto) 64 Lymph % (Auto) 23 Wayne % (Auto) 9 Eos % (Auto) 3 Baso % (Auto) 1 Neut # (Auto) 4.5 Lymph # (Auto) 1.6 Wayne # (Auto) 0.6 Eos # (Auto) 0.2 Baso # (Auto) 0.1 Immature Gran # (Auto) 0.01 H Absolute Nucleated RBC 0.00 Immature Gran % 0 Nucleated RBC % 0 PT 11.5 INR 1.1 APTT 67.2 H 61.6 H Sodium 140 Potassium 4.0 D Chloride 102 Carbon Dioxide 32.4 H Anion Gap 6 L BUN 10 Creatinine 0.8 Estim Creat Clear Calc 92.6 eGFR > 60 BUN/Creatinine Ratio 13 Glucose 98 Calculated Osmolality 278 Calcium 8.7 Corrected Calcium 9.1 Phosphorus 3.1 Magnesium 1.7 Total Bilirubin 0.7 AST 18 ALT 26 Alkaline Phosphatase 89 Total Protein 6.0 Albumin 3.5 Globulin 2.5 Albumin/Globulin Ratio 1.4 Quality Measures Quality Measures none Advance care planning discussed with:: patient Assessment & Plan Assessment Current Active Medications: Generic Name Dose Route Start Last Admin Trade Name Freq PRN Reason Stop Dose Admin Acetaminophen 650 mg 10/19/24 13:11 10/19/24 14:12 Acetaminophen 325 Mg Tablet PO 11/18/24 13:10 650 mg Q6H PRN Administration Fever >100 or pain 1-3 Amiodarone HCl 200 mg 10/20/24 09:00 10/22/24 08:37 Amiodarone Hcl 200 Mg Tablet PO 11/19/24 08:59 200 mg BID KAYLA Administration Protocol Apixaban 5 mg 10/19/24 21:00 10/20/24 09:41 Apixaban 2.5 Mg Tablet PO 11/18/24 20:59 5 mg BID KAYLA Administration Gabapentin 600 mg 10/19/24 14:00 10/22/24 16:01 Gabapentin 300 Mg Capsule PO 11/18/24 13:59 Not Given TID KAYLA Levalbuterol HCl 1.25 mg 10/19/24 19:00 10/22/24 12:16 Levalbuterol Rt 1.25 Mg/0.5 Ml Nebu INH 11/18/24 18:59 Not Given Q6HRRT KAYLA Metoprolol Succinate 50 mg 10/22/24 09:00 10/22/24 08:37 Metoprolol Succinate Xl 25 Mg Tabcr PO 11/21/24 08:59 50 mg QDAY KAYLA Administration Ondansetron HCl 4 mg 10/19/24 13:11 Ondansetron Inj 2 Mg/Ml Inj 2 Ml IV 11/18/24 13:10 Q6H PRN NAUSEA OR VOMITING Protocol Sodium Chloride 3 ml 10/19/24 13:11 10/22/24 06:43 Sodium Chloride Rt Estrellita 0.9% 3 Ml Nebu INH 11/18/24 13:10 3 ml PRN PRN Administration SOLN Tamsulosin HCl 0.4 mg 10/21/24 10:30 10/22/24 08:37 Tamsulosin Hcl 0.4 Mg Capsule PO 11/20/24 10:29 0.4 mg QDAY KAYLA Administration Plan Assessment Nura is a 78 y/o with PMHx of TBI, R sided hemiparesis (wheelchair bound), HTN, obesity, BPH who is admitted for new onset afib with RVR. #New onset of A-fib #Hx of RBBB # HFpEF with EF 35% with associated with mild TR, LA dilatation and right ventricle dysfunction #Acute hypoxic respiratory failure #? CAD [id number]: 3 points HAS-BLED: 1 point, low risk of major bleeding Rate:100s Rhythm:Irregularly irregular AC:None at home On previous ekgs, there has been no hx of afib, however, hx of RBBB Preliminary echo read shows possible EF of 35% mild right ventricle dysfunction, LA dilatation, mild TR Lipid panel shows total cholesterol 153, triglycerides 205, LDL 77 TSH 0.74; A1c 5.9 Patient may need cardiac cath to assess for ischemic heart disease Amio drip started overnight as patient went into A-fib with RVR overnight Echo report shows Severe LV dysfuntion with estimated EF of 30-35% with global hyopkinesis. Cannot r/o any apical akinesis. Normal LV size. Mild LVH. Diastolic dysfunction cannot be graded due to afib. Normal RV size and systolic function. Estimated RVSP 35 - 40 mmhg. Mild to moderate MR. Moderate MAC. Mild TR. Cath today Pt recommending outpatient PT upon d/c Plan: - Cardiology Consulted, apprec recs - Keep Magnesium and potassium above two and four respectively - Amio 200 mg twice daily p.o. - Continue with Heparin drip - Increased metoprolol XL 50 mg p.o. - Follow up Cath results #CRISTINO, resolved DDx: Most likely prerenal ideology, however seems that patient may have BPH history, could be postobstructive uropathy Was given 4 L bolus in ED With concern for poor oral intake, caregiver is unable to provide much information in regards to patient's oral intake Creatinine 0.9 today Plan: ? Renally dose medicines ? Avoid nephrotoxic agents #Hx of HTN #Hx of HLD Has some beta ciarra, CCB and lisinopril upon initial med rec Total cholesterol 153, triglycerides 205, LDL 77 Will resume ARB/AMY after cath Plan: -Continue home Crestor 20 mg -Patient will need to be on GDMT therapy which will be added ?Increased Metoprolol XL 50 mg p.o. #History of TBI #Right-sided hemiparesis Speech recommends dysphagia diet Plan: ? Aspiration precautions #History of BPH Plan: ? Resumed home Flomax 0.4 mg #Polysubstance abuse #Concern for Neglect Daughter reports that father uses drugs and that is why he lives with a hotel maintenance technician and not with her UDS ordered and shows meth and marjiuana Plan: - Referral to secondary social studies teacher #Health Maintenance Disposition: Telemetry DVT prophylaxis: Heparin drip GI prophylaxis: Protonix Diet: NPO at midnight CODE STATUS:Full Patient seen and care discussed with my senior resident, Dr. Ba, and my attending physician, Dr. Serina Ro, PGY-1 Attending Provider Attestation/Addendum I reviewed labs, imaging, EKG, home medications and prior available records. Face to face evaluation was performed by me. I have personally examined the patient and discussed assessment and plan with the IM team. I reviewed the resident note and agree with the plan with exceptions as below. Ground-level fall Generalized weakness Acute hypotension CRISTINO Atrial fibrillation with rapid ventricular rhythm Dehydration History of traumatic brain injury Patient went into A-fib with RVR. Started amiodarone drip. Started metoprolol 25 mg XL heart rate improved. Echocardiogram showed HFrEF with EF of 35%. Patient does not look volume overloaded. Discussed with cardiology: Plan for cardiac catheterization on 10/22 Ordered U-Tox that was positive for methamphetamine. Possibly related to his cardiomyopathy Monitor kidney function: Creatinine improved. Avoid nephrotoxins. Renally dosed medications Ordered PT evaluation: Okay to return home however family is not able to take care of him. Will discuss other options with social security benefits interviewer
[2024-10-23] VITALS (14 sets, daily range): BP systolic 106–146; BP diastolic 50–98; PULSE 78–93; RESP 18–22; TEMP 36.2–37.3; O2SAT 95–99; BMI 33.2
[2024-10-23] MEDS: LEVALBUTEROL RT 1.25 MG/0.5 ML NEBU INH ×4 (00:45→18:20)
[2024-10-23] MEDS: GABAPENTIN 300 MG CAPSULE 600 MG PO ×3 (05:59→21:15)
[2024-10-23 06:05] LABS: Basophils % (Auto) 1 % (0-2.5); Eosinophils # (Auto) 0.2 Thou/mm3 (0.0-0.5); Eosinophils % (Auto) 3 % (0-10); Hematocrit 39.1 % (41.0-53.0); Hemoglobin 13.2 g/dL (13.5-16.0); Immature Granulocytes % (Auto) 0 % (0-0); Immature Granulocytes Auto 0.01 Thou/mm3 (0.00-0.00); Lymphocytes # (Auto) 1.7 Thou/mm3 (1.0-4.8); Lymphocytes % (Auto) 23 % (10-50); Mean Corpuscular HGB Conc 33.8 g/dl (31.0-37.0); Mean Corpuscular Hemoglobin 31.5 pg (25.0-35.0); Mean Corpuscular Volume 93 fL (80-100); Monocytes # (Auto) 0.7 Thou/mm3 (0.0-0.8); Monocytes % (Auto) 9 % (0-12); Neutrophils # (Auto) 4.6 Thou/mm3 (1.8-7.7); Neutrophils % (Auto) 64 % (37-80); Nucleated Red Blood Cell % 0 /100 WBC (0); Platelet Count 202 Thou/mm3 (140-440); RDW Standard Deviation 43.1 fL (35.1-43.9); Red Blood Count 4.19 Miln/mm3 (4.50-5.90); White Blood Count 7.3 Thou/mm3 (3.8-10.6)
[2024-10-23] MEDS: SODIUM CHLORIDE RT SOL 0.9% 3 ML NEBU INH ×2 (06:12→12:24)
[2024-10-23 06:27] LABS: Alanine Aminotransferase 22 U/L (10-49); Albumin, Serum 3.7 gm/dL (3.4-4.8); Albumin/Globulin Ratio 1.4 (1.2-2.2); Alkaline Phosphatase 87 U/L (46-116); Anion Gap 3 (7-16); Aspartate Amino Transferase 15 U/L (0-34); BUN/Creatinine Ratio 10 Ratio (12-20); Bilirubin,Total 0.5 mg/dL (0.3-1.2); Blood Urea Nitrogen 10 mg/dL (9-23); Calcium 9.1 mg/dL (8.3-10.6); Calcium (Corrected) 9.3 mg/dL (8.5-10.1); Carbon Dioxide 33.6 mMol/L (20.0-31.0); Chloride 104 mMol/L (98-107); Estimated Creatinine Clearance 73.7 mL/min (>60); Globulin 2.6 gm/dL (2.3-3.5); Glucose 102 mg/dL (74-106); Osmolality,Calculated 280 (275-295); Potassium 4.7 mMol/L (3.4-5.1); Sodium 141 mMol/L (136-145); Total Protein 6.3 gm/dL (5.7-8.2); eGFR > 60 See Note
[2024-10-23] MEDS: TAMSULOSIN HCL 0.4 MG CAPSULE PO (08:22)
[2024-10-23] MEDS: AMIODARONE HCL 200 MG TABLET PO ×2 (08:22→21:15)
[2024-10-23] MEDS: METOPROLOL SUCCINATE XL 25 MG TABCR 50 MG PO (08:22)
[2024-10-23] MEDS: APIXABAN 2.5 MG TABLET 5 MG PO ×2 (08:23→21:15)
--- NOTE | 2024-10-23 09:53 | PD.RESDS ---
Planned Discharge Date 10/23/24 DS: Providers Provider Date of admission: 10/20/24 14:48 Primary care physician: Jairo Weaver MD Admitting Provider: Moshe Smalls MD Attending Provider on Admission: Moshe Smalls MD Consults: 10/19/24 13:18 Consult to Cardiology Routine Comment: new onset afib Consulting Provider: Sourav Gagnon 10/20/24 08:40 Referral - PRODUCTION CONTROLLER Hris Coordinator Routine Comment: reji Loya 10/20/24 09:55 Referral Physical Therapy Routine Comment: Physician Instructions: Attending Provider on DC: Moshe Smalls MD Discharging Provider: Moshe Smalls MD DS: Diagnosis Problem List Completed Was Problem List Reviewed/Reconciled?: Yes Hospital Course Hospital Course Hospital course: Nura is a 78 y/o male with PMHx obesity, TBI (right sided hemiplegia, 25 years ago), hypertension, BPH who was admitted on 10/19/2024 for new onset of Afib with RVR after a fall in the bathroom that occurred at 5 AM. Patient is present with gaming department head and story was taken from gaming department head. Patient arrived to the ED with a blood pressure of 70/45, afebrile, heart rate of 118, hemoglobin 14.5, coagulation panel negative, sodium 136, potassium 4.2, bicarb of 23, BUN/creatinine 16 and 1.3, saturating 96% 6 L nasal cannula. Patient was worked up and was found to have a hemoglobin 14.5, coagulation panel negative, sodium 136, potassium 4.2, bicarb of 23, BUN/creatinine 16 and 1.3 white count 9.8, glucose magnesium 2.1, calcium 9.2, troponin negative x 1, 222 lipase 38, Pro-Nixon 0.05. Urine showed leukocyte esterase and 19 RBCs. EKG did not show any pneumothorax or signs of pneumonia. Hip pelvis x-ray was negative for fracture. Head CT was negative for hemorrhage mass effect or midline shift. Cervical neck spine CT was unremarkable. Abdomen pelvis CT was negative for abdominal laceration splenic laceration or any other fracture. EKG did show A-fib with right bundle branch block. Patient was given 4 L of normal saline in addition to fentanyl 50 mcg. Medicine was consulted patient was admitted to floors. Cardiology was consulted, Dr. Gagnon, while patient was on the floors. Pt was started on amio drip and was then transitioned to amio 200 mg BID, and was also put on metoprolol 25 XL po. Pt was also put on Eliquis 5 mg BID for AC. Pt had echo done which showed severe LV dysfunction EF ~30-35%, w/ wall motion abnormalities, diastolic dysfunction (cannot determine grade b/c of afib), RVSP 35-40 mmHg. Pt was then transitioned to heparin drip for cardiac cath for concern for CAD and cardiomyopathy. Pt had R and L cardiac cath on 10/22/2024 in which showed mild diffuse disease involving L main LAD, LCx and RCA. Normal LVEDP showed 14 mm Hg and LVEF ~35%. It also showed mean RA pressure 16 mmHg, RV 41/13 mmHg, mean 16 mm Hg, PCWP 16 mmHg and PA pressure 42/25 mmHg w/ mean 32 mmHg. Cardia c output and cardiac index were 8 L/min and 3.61 L/min/m? respectively. Upon d/c, there was concern for some neglect from gaming department head, and PT recommended outpatient PT, and therefore we recommended pt to go to SNF in addition to daughter requesting to place father in SNF. Pt have positive Utox showing meth and THC. We recommend to take medicines as prescribed and to follow up outpatient. If you don't have a PCP, please follow up with me Dr. Ro, or any one of my colleagues (My schedule will be AM) [facility], [address] [place] [id number]. Otherwise, follow up with your PCP within one week Follow up with Dr. Gagnon, rod greaser, within one week upon D/[place] [address] [place] [id number]. Call to make an appointment. Continue to take Amiodarone 200 mg twice a day by mouth once a day Continue to take Metoprolol XL 25 mg by mouth once a day Continue to take Eliquis 5 mg twice a day by mouth #New onset of A-fib #Hx of RBBB # HFpEF with EF 35% with associated with mild TR, LA dilatation and right ventricle dysfunction #Acute hypoxic respiratory failure #Restrictive cardiomyopathy #CAD #CRISTINO, resolved #Hx of HTN #Hx of HLD #History of TBI #Right-sided hemiparesis #History of BPH #Polysubstance abuse #Concern for Neglect Patient seen and care discussed with my senior resident, Dr. Ba, and my attending physician, Dr. Serina Ro, PGY-1 Time Spent with Patient Time attestation: Total time spent providing and/or coordinating discharge services: Time spent: Greater than 30 minutes Exam Vital Signs Temp Pulse Resp BP Pulse Ox O2 Del Method O2 Flow Rate 97.7 F 93 21 H 121/61 98 Nasal Cannula 2 10/23/24 08:00 10/23/24 08:22 10/23/24 08:00 10/23/24 08:22 10/23/24 08:00 10/23/24 08:00 10/23/24 08:00 FiO2 2 10/23/24 08:00 Narrative Exam General: AAOx3, mild distress, Kinyarwanda-speaking male, obese, wearing numerous bracelets on arms, upright eating breakfast HEENT: Dry mucous membranes, conjunctiva clear, EOMI, PERRLA, Cardiovascular: S1, S2, radial pulses +2 bilat, irregularly irregular, tachycardic Pulmonary: Difficulty appreciating breath sounds, however possible wheezing heard upon auscultation GI: Abdomen does seem a bit firm upon palpation Extremities: No presence of trace or pitting edema in lower extremities bilaterally, dorsalis pedis pulses +2 bilaterally Neuro: AAOx3, right sided hemiparesis, wheelchair-bound Psych: Cooperative Discharge Plan Plan Patient Disposition: Xfer Skilled Nsg Fac (SNF) Disposition Comment: Dr. Smalls, telemetry Care Plan Goals: If you don't have a PCP, please follow up with me Dr. Ro, or any one of my colleagues (My schedule will be AM) [facility], [place] [id number]. Otherwise, follow up with your PCP within one week Follow up with Dr. Gagnon, rod greaser, within one week upon D/[place] [address] [place] [id number]. Call to make an appointment. Continue to take Amiodarone 200 mg twice a day by mouth once a day Continue to take Metoprolol XL 25 mg by mouth once a day Continue to take Eliquis 5 mg twice a day by mouth Si no tiene un PCP, comun?quese conmigo, el Dr. Ro, o con cualquiera de mis colegas (mi horario ser? el jueves por la ma?renetta). [facility]?lydia, [address] [place] [address]. De lo contrario, adele un seguimiento con maurer PCP dentro de hawa semana. Adele un seguimiento con el Dr. Gagnon, cardi?logo, dentro de hawa semana despu?s de la D/C. [address] [place] [address]. Maame al para programar hawa tommy. Contin?e tomando Amiodarona 200 mg dos veces al d?a por v?a oral hawa vez al d?a. Contin?e tomando Metoprolol XL 25 mg por v?a oral hawa vez al d?a. Contin?e tomando Eliquis 5 mg dos veces al d?a por v?a oral. Prescriptions/Referrals Prescriptions/Med Rec: No Action lovastatin 20 MG tablet 20 mg PO HS Qty: 0 ropinirole 1 mg tablet 2 mg PO HS lisinopril 20 mg tablet 20 mg PO QDAY fluoxetine 10 mg capsule 10 mg PO QDAY metoprolol tartrate 100 mg tablet 100 mg PO BID Patient Comments: TOME HAWA TABLETA DOS VECES AL D A CON ALIMENTO amlodipine 5 mg Tablet 10 mg PO QDAY doxazosin 4 mg Tablet 4 mg PO QDAY furosemide 20 mg tablet 20 mg PO .COMPLEX Patient Comments: TAKE 1 TABLET BY MOUTH EVERY DAY Rx Instructions: 20 mg orally DAILY; gabapentin 600 mg tablet 600 mg PO BID diclofenac sodium 50 mg tablet,delayed release (DR/EC) 50 mg PO TID PRN (Reason: PAIN SWELLING FEVER) Referrals: Jairo Weaver MD [Primary Care Provider] - Patient/Caregiver Discharge Instructions Print Language: Kinyarwanda Stand Alone Forms: Irene Award Info., Patient Portal Info Letter Quality Discharge Quality Measures VTE prophylaxis ([place] ) Attestestation Attestation I reviewed labs, imaging, EKG, home medications and prior available records. Face to face evaluation was performed by me. I have personally examined the patient and discussed assessment and plan with the IM team. I reviewed the resident note and agree with the plan with exceptions as below. Ground-level fall Generalized weakness Acute hypotension CRISTINO Atrial fibrillation with rapid ventricular rhythm Dehydration History of traumatic brain injury Rate is controlled. Continue amiodarone, metoprolol, and Eliquis. Echocardiogram showed HFrEF with EF of 35%. Patient does not look volume overloaded. Discussed with cardiology: Plan for cardiac catheterization on 10/22. The catheterization showed no obstructive CAD. Continue medical management. 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 Possibly related to his cardiomyopathy Monitor kidney function: Creatinine improved. Avoid nephrotoxins. Renally dosed medications Ordered PT evaluation: Okay to return home however family is not able to take care of him. Plan for SNF placement. Pending authorization. Discussed with health social work professor
--- NOTE | 2024-10-23 14:36 | PC.SS ---
COMPUTER SYSTEMS CONSULTANT informed patient and patient's daughter, Fabiana; that follwoing SNF's have accepted patient for placement: [facility] and [facility]. Patient has agreed to transition to [facility]. SNF to initiate authorization for placement.
--- NOTE | 2024-10-23 15:05 | PC.SS ---
Rounding Note: Patient medically cleared for discharge to SNF, pending insurance authorization.
[2024-10-23 15:19] LABS: O2 Saturation (Cath Lab) 70 % (91-98); Puncture Site Pulmonary Artery
[2024-10-23 15:20] LABS: O2 Saturation (Cath Lab) 89 % (91-98); Puncture Site Aortic
--- NOTE | 2024-10-23 18:00 | PD.IMPROG ---
Documentation for date of: 10/23/24 Subjective Subjective Interval history: Patient seen and examined at the bedside. Patient tolerated the left and right heart catheterization well. Right radial pulse is 2+ today and there is no evidence of hematoma either in the right radial site of the right femoral venous access. Vitals reviewed and hemoglobin stable at 12.9 and the BUN and creatinine was 10 and 1.0. Patient denies any kind of chest pain or chest pressure or other cardiac symptoms. Patient still continues to be in atrial fibrillation but rate is well-controlled and amiodarone drip is completed and recommend to transition to amiodarone p.o. 200 mg twice daily. Already on metoprolol XL 50 mg once daily Heparin drip was stopped post cardiac catheterization and transition to Eliquis 5 mg p.o. twice daily. Patient has new onset severe systolic CHF and hence left and right heart cardiac cathterization was performed on 10/22/2024 which showed only mild diffuse CAD involving all 3 coronary arteries. Right heart cardiac catheterization showed mildly elevated right heart pressures with mean PA of 32 mmHg. Pulmonary capillary wedge pressure and LVEDP were normal indicating that patient is euvolemic. Possible etiology of the new onset severe systolic congestive heart failure is the tachycardia induced cardiomyopathy. Recommend aggressive rate control atrial fibrillation and will consider the possibility of rhythm control at a later stage if patient does not improve. Patient will need goal-directed medical therapy for the severe systolic dysfunction and is on multiple Right now and recommend to start Entresto 24 to 26 mg twice daily if blood pressure permissible and spironolactone can be started as outpatient patient renal function is stable. Recommended to follow-up with cardiology in the next 7 to 10 days for ongoing treatment of his A-fib as well as the CHF. Exam Vital Signs Temp Pulse Resp BP Pulse Ox O2 Del Method O2 Flow Rate 99.2 F 80 22 H 114/54 L 95 Nasal Cannula 1 10/23/24 21:39 10/23/24 21:39 10/23/24 21:39 10/23/24 21:39 10/23/24 21:39 10/23/24 21:39 10/23/24 21:39 FiO2 2 10/23/24 12:00 Objective Labs 10/23/24 05:48 10/23/24 05:48 Labs: Laboratory Results - last 24 hr 10/23/24 10/23/24 10/23/24 05:48 12:51 12:51 WBC 7.3 RBC 4.19 L Hgb 13.2 L Hct 39.1 L MCV 93 MCH 31.5 MCHC 33.8 RDW Std Deviation 43.1 Plt Count 202 Neut % (Auto) 64 Lymph % (Auto) 23 [place] % (Auto) 9 Eos % (Auto) 3 Baso % (Auto) 1 Neut # (Auto) 4.6 Lymph # (Auto) 1.7 [place] # (Auto) 0.7 Eos # (Auto) 0.2 Baso # (Auto) 0.0 Immature Gran # (Auto) 0.01 H Absolute Nucleated RBC 0.00 Immature Gran % 0 Nucleated RBC % 0 POC Blood Site Pulmonary Artery Aortic POC O2 Saturation 70 L Sodium 141 Potassium 4.7 D Chloride 104 Carbon Dioxide 33.6 H Anion Gap 3 L BUN 10 Creatinine 1.0 Estim Creat Clear Calc 73.7 eGFR > 60 BUN/Creatinine Ratio 10 L Glucose 102 Calculated Osmolality 280 Calcium 9.1 Corrected Calcium 9.3 Magnesium 2.0 Total Bilirubin 0.5 AST 15 ALT 22 Alkaline Phosphatase 87 Total Protein 6.3 Albumin 3.7 Globulin 2.6 Albumin/Globulin Ratio 1.4 10/23/24 12:51 WBC RBC Hgb Hct MCV MCH MCHC RDW Std Deviation Plt Count Neut % (Auto) Lymph % (Auto) [place] % (Auto) Eos % (Auto) Baso % (Auto) Neut # (Auto) Lymph # (Auto) [place] # (Auto) Eos # (Auto) Baso # (Auto) Immature Gran # (Auto) Absolute Nucleated RBC Immature Gran % Nucleated RBC % POC Blood Site POC O2 Saturation 89 L Sodium Potassium Chloride Carbon Dioxide Anion Gap BUN Creatinine Estim Creat Clear Calc eGFR BUN/Creatinine Ratio Glucose Calculated Osmolality Calcium Corrected Calcium Magnesium Total Bilirubin AST ALT Alkaline Phosphatase Total Protein Albumin Globulin Albumin/Globulin Ratio Assessment & Plan A&P Narrative A 78-year-old male with a past medical history of 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 EKG showed atrial fibrillation with a right bundle branch block initially with rate controlled at 98 bpm. Later on patient was in RVR. Cardiology consulted for new onset atrial fibrillation with RVR. 1. Atrial fibrillation with RVR-new onset 2. Acute hypoxic respiratory failure-unclear etiology on oxygen via nasal cannula 3. Acute kidney injury 4. Fall-appears mechanical 5. Traumatic brain injury status post right hemiparesis more than 25 years ago and wheelchair-bound 6. Essential hypertension 7. Hyperlipidemia 8. Morbid obesity 9. Restless leg syndrome 10. BPH New onset atrial fibrillation with RVR: Patient does not have a history of atrial fibrillation with rate controlled at 90 bpm but later on the telemetry did show elevated heart rate indicating atrial fibrillation with RVR. Recommended to continue to monitor telemetry for now as the heart rate has not increased greater than 120 bpm. Patient was hypotensive on arrival with acute kidney injury and hypotension which probably secondary to dehydration. If patient goes into RVR recommend event drip with amiodarone oral medication as the patient is hypotensive and would avoid digoxin because of the CRISTINO and the need to also monitor digoxin level as outpatient. Patient's asthma score is elevated at at least 4 and recommend anticoagulation with heparin drip and if no procedures are planned then patient can be started on Eliquis 5 mg twice daily. Continue to monitor telemetry and keep potassium greater than 4 magnesium greater than 2.0 at all times. Patient has acute kidney injury along with hypotension on admission indicating possible dehydrated state and patient received at least 3 to 4 L of IV fluids in the emergency department with improvement of the blood pressure. Unclear reason for the CRISTINO and hypotension and will need to rule out any underlying sepsis and the primary team to workup for the same. Patient had a fall and appears to mostly mechanical fall but unable to give clear history regarding any dizziness or syncope. Review of the chart shows the patient did have previous falls which are mostly mechanical as he is wheelchair-bound because of his history of traumatic brain injury with right-sided Oracio paresis. CT x-rays and rest of the workup has been negative. Continue to monitor telemetry patient did have atrial fibrillation with RVR on presentation but rates have been less than 120 bpm and unlikely to be the cause for the fall. Hold off on any hypertensives because of the hypotension. Check TSH A1c and lipid profile for further cardiac risk stratification. 10/20/2024 Echocardiogram completed 10/20/2024 showed severe LV dysfunction with an EF of 30 to 35% with global hypokinesis cannot rule out apical akinesis. Normal LV and RV size. Normal RV function. Mild LVH diastolic dysfunction cannot be graded due to A-fib. Estimated RVSP of 35 to 40 mmHg. Mild to moderate MR. Moderate MAC and mild TR. Patient does have new onset severe systolic congestive heart failure and unclear etiology for now Possibly patient has tachycardia induced cardiomyopathy and due to undiagnosed atrial fibrillation with RVR previously but will need to rule out other causes including any ischemic causes. will schedule for left and right heart cath. 10/23/2024 Patient seen and examined at the bedside. Patient tolerated the left and right heart catheterization well. Right radial pulse is 2+ today and there is no evidence of hematoma either in the right radial site of the right femoral venous access. Vitals reviewed and hemoglobin stable at 12.9 and the BUN and creatinine was 10 and 1.0. Patient denies any kind of chest pain or chest pressure or other cardiac symptoms. Patient still continues to be in atrial fibrillation but rate is well-controlled and amiodarone drip is completed and recommend to transition to amiodarone p.o. 200 mg twice daily. Already on metoprolol XL 50 mg once daily Heparin drip was stopped post cardiac catheterization and transition to Eliquis 5 mg p.o. twice daily. Patient has new onset severe systolic CHF and hence left and right heart cardiac cathterization was performed on 10/22/2024 which showed only mild diffuse CAD involving all 3 coronary arteries. Right heart cardiac catheterization showed mildly elevated right heart pressures with mean PA of 32 mmHg. Pulmonary capillary wedge pressure and LVEDP were normal indicating that patient is euvolemic. Possible etiology of the new onset severe systolic congestive heart failure is the tachycardia induced cardiomyopathy. Recommend aggressive rate control atrial fibrillation and will consider the possibility of rhythm control at a later stage if patient does not improve. Patient will need goal-directed medical therapy for the severe systolic dysfunction and is on multiple Right now and recommend to start Entresto 24 to 26 mg twice daily if blood pressure permissible and spironolactone can be started as outpatient patient renal function is stable. Recommended to follow-up with cardiology in the next 7 to 10 days for ongoing treatment of his A-fib as well as the CHF. Management of rest of the medical conditions as per primary team and other consultants. Thank you for the consult and allowing me to participate in the care of the patient. Cardiology will continue to follow. Sourav Linder Anumandla M.D. Interventional Cardiology Time Spent With Patient Time: Total time spent is greater than 50% in coordination of care (as documented) at patient's floor/unit and/or counseling patient:
--- NOTE | 2024-10-23 19:40 | PC.NURSE ---
Pt transferring to Med Surg bed 375 gave report to Sisi ESTRADA at 1939.
--- NOTE | 2024-10-23 20:00 | PC.NURSE ---
2000 pt transferring to Med Surg. belongings with pt.
[2024-10-24] VITALS (9 sets, daily range): BP systolic 112–146; BP diastolic 70–90; PULSE 75–91; RESP 14–21; TEMP 36.2–36.7; O2SAT 88–100; BMI 33.4
[2024-10-24] MEDS: SODIUM CHLORIDE RT SOL 0.9% 3 ML NEBU INH ×3 (01:13→13:01)
[2024-10-24] MEDS: LEVALBUTEROL RT 1.25 MG/0.5 ML NEBU INH ×3 (01:13→13:01)
[2024-10-24] MEDS: GABAPENTIN 300 MG CAPSULE 600 MG PO ×2 (05:43→15:00)
--- NOTE | 2024-10-24 07:59 | ESPR_ITS ---
Documentation for date of: 10/24/24 Subjective Subjective Interval history: Patient seen and examined at the bedside. Patient tolerated the left and right heart catheterization well. Right radial pulse is 2+ today and there is no evidence of hematoma either in the right radial site of the right femoral venous access. Vitals reviewed and no new labs. Last labs on 10/23/2024 -hemoglobin stable at 12.9 and the BUN and creatinine was 10 and 1.0. Patient denies any kind of chest pain or chest pressure or other cardiac symptoms. Patient still continues to be in atrial fibrillation but rate is well-controlled on oral amiodarone p.o. 200 mg twice daily and metoprolol XL 50 mg once daily Heparin drip transitioned to Eliquis 5 mg p.o. twice daily. Patient has new onset severe systolic CHF and hence left and right heart cardiac cathterization was performed on 10/22/2024 which showed only mild diffuse CAD involving all 3 coronary arteries. Right heart cardiac catheterization showed mildly elevated right heart pressures with mean PA of 32 mmHg. Pulmonary capillary wedge pressure and LVEDP were normal indicating that patient is euvolemic. Possible etiology of the new onset severe systolic congestive heart failure is the tachycardia induced cardiomyopathy. Recommend aggressive rate control atrial fibrillation and will consider the possibility of rhythm control at a later stage if patient does not improve. Patient will need goal-directed medical therapy for the severe systolic dysfunction and is on multiple Right now and recommend to start Entresto 24 to 26 mg twice daily if blood pressure permissible and spironolactone can be started as outpatient patient renal function is stable. Recommended to follow-up with cardiology in the next 7 to 10 days for ongoing treatment of his A-fib as well as the CHF. Exam Vital Signs Temp Pulse Resp BP Pulse Ox O2 Del Method O2 Flow Rate 97.8 F 89 20 140/85 H 100 Nasal Cannula 4 10/24/24 04:00 10/24/24 07:33 10/24/24 07:33 10/24/24 04:00 10/24/24 07:33 10/24/24 04:00 10/24/24 07:33 FiO2 2 10/23/24 12:00 Narrative Exam General: Alert and oriented x3. In no acute distress on nasal canula. Eyes: Pupils are equal and reactive to light bilaterally. HEENT: Atraumatic, normocephalic. No JVD noted. Mucosa moist. Cardiovascular: Normal S1 and S2. Irregularly irregular, 2 or 6 systolic murmur at the apex, no peripheral pitting edema noted. Respiratory: Bilateral air entry present but decreased at the bases and on oxygen via nasal cannula Abdomen: Soft, nontender, nondistended. Skin: No rash. Warm to touch. Musculoskeletal: No gross injuries. Able to move all 4 extremities. Neuro: Alert and oriented x3. No focal neuro deficits. 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 EKG showed atrial fibrillation with a right bundle branch block initially with rate controlled at 98 bpm. Later on patient was in RVR. Cardiology consulted for new onset atrial fibrillation with RVR. 1. Atrial fibrillation with RVR-new onset 2. Acute hypoxic respiratory failure-unclear etiology on oxygen via nasal cannula 3. Acute kidney injury 4. Fall-appears mechanical 5. Traumatic brain injury status post right hemiparesis more than 25 years ago and wheelchair-bound 6. Essential hypertension 7. Hyperlipidemia 8. Morbid obesity 9. Restless leg syndrome 10. BPH New onset atrial fibrillation with RVR: Patient does not have a history of atrial fibrillation with rate controlled at 90 bpm but later on the telemetry did show elevated heart rate indicating atrial fibrillation with RVR. Recommended to continue to monitor telemetry for now as the heart rate has not increased greater than 120 bpm. Patient was hypotensive on arrival with acute kidney injury and hypotension which probably secondary to dehydration. If patient goes into RVR recommend event drip with amiodarone oral medication as the patient is hypotensive and would avoid digoxin because of the CRISTINO and the need to also monitor digoxin level as outpatient. Patient's asthma score is elevated at at least 4 and recommend anticoagulation with heparin drip and if no procedures are planned then patient can be started on Eliquis 5 mg twice daily. Continue to monitor telemetry and keep potassium greater than 4 magnesium greater than 2.0 at all times. Patient has acute kidney injury along with hypotension on admission indicating possible dehydrated state and patient received at least 3 to 4 L of IV fluids in the emergency department with improvement of the blood pressure. Unclear reason for the CRISTINO and hypotension and will need to rule out any underlying sepsis and the primary team to workup for the same. Patient had a fall and appears to mostly mechanical fall but unable to give clear history regarding any dizziness or syncope. Review of the chart shows the patient did have previous falls which are mostly mechanical as he is wheelchair- bound because of his history of traumatic brain injury with right-sided Oracio paresis. CT x-rays and rest of the workup has been negative. Continue to monitor telemetry patient did have atrial fibrillation with RVR on presentation but rates have been less than 120 bpm and unlikely to be the cause for the fall. Hold off on any hypertensives because of the hypotension. Check TSH A1c and lipid profile for further cardiac risk stratification. 10/20/2024 Echocardiogram completed 10/20/2024 showed severe LV dysfunction with an EF of 30 to 35% with global hypokinesis cannot rule out apical akinesis. Normal LV and RV size. Normal RV function. Mild LVH diastolic dysfunction cannot be graded due to A-fib. Estimated RVSP of 35 to 40 mmHg. Mild to moderate MR. Moderate MAC and mild TR. Patient does have new onset severe systolic congestive heart failure and unclear etiology for now Possibly patient has tachycardia induced cardiomyopathy and due to undiagnosed atrial fibrillation with RVR previously but will need to rule out other causes including any ischemic causes. will schedule for left and right heart cath. 10/24/2024 Patient tolerated the left and right heart catheterization well. Right radial pulse is 2+ today and there is no evidence of hematoma either in the right radial site of the right femoral venous access. Vitals reviewed and no new labs. Last labs on 10/23/2024 -hemoglobin stable at 12.9 and the BUN and creatinine was 10 and 1.0. Patient denies any kind of chest pain or chest pressure or other cardiac symptoms. Patient still continues to be in atrial fibrillation but rate is well-controlled on oral amiodarone p.o. 200 mg twice daily and metoprolol XL 50 mg once daily Heparin drip transitioned to Eliquis 5 mg p.o. twice daily. Patient has new onset severe systolic CHF and hence left and right heart cardiac cathterization was performed on 10/22/2024 which showed only mild diffuse CAD involving all 3 coronary arteries. Right heart cardiac catheterization showed mildly elevated right heart pressures with mean PA of 32 mmHg. Pulmonary capillary wedge pressure and LVEDP were normal indicating that patient is euvolemic. Possible etiology of the new onset severe systolic congestive heart failure is the tachycardia induced cardiomyopathy. Recommend aggressive rate control atrial fibrillation and will consider the possibility of rhythm control at a later stage if patient does not improve. Patient will need goal-directed medical therapy for the severe systolic dysfunction and is on multiple Right now and recommend to start Entresto 24 to 26 mg twice daily if blood pressure permissible and spironolactone can be started as outpatient patient renal function is stable. Recommended to follow-up with cardiology in the next 7 to 10 days for ongoing treatment of his A-fib as well as the CHF. Management of rest of the medical conditions as per primary team and other consultants. Thank you for the consult and allowing me to participate in the care of the patient. Cardiology will continue to follow. Sourav Gagnon M.D. Interventional Cardiology Time Spent With Patient Time: Total time spent is greater than 50% in coordination of care (as documented) at patient's floor/unit and/or counseling patient:
--- NOTE | 2024-10-24 08:56 | PC.SS ---
Addendum entered by Ana Paula Tello [facility] 10/24/24 13:15: ETA changed to 5pm as patient is pending having a BM. Updated nurse chitra and SNF staff [facility] to update on new ETA. Addendum entered by Ana Paula Tello [facility] 10/24/24 12:10: SS update: spoke with patient's daughter Fabiana about transportation coverage, informs patient and family unable to pay for transport services. Patient will require oxygen needs per bed side nurse Chitra. LEON was obtained by transfer nurse, Jeancarlos. ETA set with [facility] for 2pm. Bed side nurse notified. [facility] staff Court informed. Addendum entered by Ana Paula Tello [facility] 10/24/24 11:27: SS update: contacted [facility] and was informed patient's coverage on transportation is inactive. Unable to schedule transport via [employer]. Addendum entered by Ana Paula Tello [facility] 10/24/24 11:23: SS update: spoke with patient to update on insurance auth being obtained to [facility]. He is agreeable to go there today. Updated patient's daughter, Fabiana Miller via phone call to make aware of the d/c plan. Addendum entered by Ana Paula Tello [facility] 10/24/24 10:33: SS update: received call from Court informing that authorization was obtained for the patient to d/c to [facility]. Updated Dr. Rodarte. Original Note: SS follow up: sent DC orders to [facility] via [facility]. Also left a voicemail for Court at [facility] to notify that orders were sent to initiate insurance authorization.
[2024-10-24] MEDS: APIXABAN 2.5 MG TABLET 5 MG PO (09:59)
[2024-10-24] MEDS: TAMSULOSIN HCL 0.4 MG CAPSULE PO (09:59)
[2024-10-24] MEDS: METOPROLOL SUCCINATE XL 25 MG TABCR 50 MG PO (09:59)
[2024-10-24] MEDS: AMIODARONE HCL 200 MG TABLET PO (09:59)
--- NOTE | 2024-10-24 11:38 | PC.CC ---
HH cancelled, pt is being DC to [facility] today 10/24
[2024-10-24] MEDS: LACTULOSE SYRUP 20 GM/30 ML UDC PO (12:50)
[2024-10-24] MEDS: Milk Of Magnesia Susp 30 ML UDC PO (12:50)
--- NOTE | 2024-10-24 15:17 | PD.ADDDSCHGE ---
Addendum Discharge Addendum Date of report being addended: 10/24/24 Narrative: I reviewed labs, imaging, EKG, home medications and prior available records. Face to face evaluation was performed by me. I have personally examined the patient and discussed assessment and plan with the IM team. I reviewed the resident note and agree with the plan with exceptions as below. Ground-level fall Generalized weakness Acute hypotension CRISTINO Atrial fibrillation with rapid ventricular rhythm Dehydration History of traumatic brain injury Rate is controlled. Continue amiodarone, metoprolol, and Eliquis. Echocardiogram showed HFrEF with EF of 35%. Patient does not look volume overloaded. Discussed with cardiology: Plan for cardiac catheterization on 10/22. The catheterization showed no obstructive CAD. Continue medical management. Continue metoprolol. Continue lisinopril 10 mg daily. Continue Lasix. 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 Possibly related to his cardiomyopathy Monitor kidney function: Creatinine improved. Avoid nephrotoxins. Renally dosed medications Ordered PT evaluation: Will discharge to SNF. [facility]ed to [facility]. Time spent is 40 minutes. More than 50% of the time was spent on patient education and coordination of care.
--- NOTE | 2024-10-24 15:30 | PD.RESDS ---
Planned Discharge Date 10/24/24 DS: Providers Provider Date of admission: 10/20/24 14:48 Primary care physician: Jairo Weaver MD Admitting Provider: Moshe Smalls MD Attending Provider on Admission: Moshe Smalls MD Consults: 10/19/24 13:18 Consult to Cardiology Routine Comment: new onset afib Consulting Provider: Sourav Gagnon 10/20/24 08:40 Referral - MRI SPECIAL PROCEDURES TECHNOLOGIST Office Rn Routine Comment: reji Loya 10/20/24 09:55 Referral Physical Therapy Routine Comment: Physician Instructions: Attending Provider on DC: Moshe Smalls MD Discharging Provider: Moshe Smalls MD DS: Diagnosis Problem List Completed Was Problem List Reviewed/Reconciled?: Yes Hospital Course Hospital Course Hospital course: Nura is a 78 y/o male with PMHx obesity, TBI (right sided hemiplegia, 25 years ago), hypertension, BPH who was admitted on 10/19/2024 for new onset of Afib with RVR after a fall in the bathroom that occurred at 5 AM. Patient is present with technology internship and story was taken from technology internship. Patient arrived to the ED with a blood pressure of 70/45, afebrile, heart rate of 118, hemoglobin 14.5, coagulation panel negative, sodium 136, potassium 4.2, bicarb of 23, BUN/creatinine 16 and 1.3, saturating 96% 6 L nasal cannula. Patient was worked up and was found to have a hemoglobin 14.5, coagulation panel negative, sodium 136, potassium 4.2, bicarb of 23, BUN/creatinine 16 and 1.3 white count 9.8, glucose magnesium 2.1, calcium 9.2, troponin negative x 1, 222 lipase 38, Pro-Nixon 0.05. Urine showed leukocyte esterase and 19 RBCs. EKG did not show any pneumothorax or signs of pneumonia. Hip pelvis x-ray was negative for fracture. Head CT was negative for hemorrhage mass effect or midline shift. Cervical neck spine CT was unremarkable. Abdomen pelvis CT was negative for abdominal laceration splenic laceration or any other fracture. EKG did show A-fib with right bundle branch block. Patient was given 4 L of normal saline in addition to fentanyl 50 mcg. Medicine was consulted patient was admitted to floors. Cardiology was consulted, Dr. Gagnon, while patient was on the floors. Pt was started on amio drip and was then transitioned to amio 200 mg BID, and was also put on metoprolol 25 XL po. Pt was also put on Eliquis 5 mg BID for AC. Pt had echo done which showed severe LV dysfunction EF ~30-35%, w/ wall motion abnormalities, diastolic dysfunction (cannot determine grade b/c of afib), RVSP 35-40 mmHg. Pt was then transitioned to heparin drip for cardiac cath for concern for CAD and cardiomyopathy. Pt had R and L cardiac cath on 10/22/2024 in which showed mild diffuse disease involving L main LAD, LCx and RCA. Normal LVEDP showed 14 mm Hg and LVEF ~35%. It also showed mean RA pressure 16 mmHg, RV 41/13 mmHg, mean 16 mm Hg, PCWP 16 mmHg and PA pressure 42/25 mmHg w/ mean 32 mmHg. Cardia c output and cardiac index were 8 L/min and 3.61 L/min/m? respectively. Upon d/c, there was concern for some neglect from technology internship, and PT recommended outpatient PT, and therefore we recommended pt to go to SNF in addition to daughter requesting to place father in SNF. Pt have positive Utox showing meth and THC. We recommend to take medicines as prescribed and to follow up outpatient. #New onset of A-fib #Hx of RBBB # HFpEF with EF 35% with associated with mild TR, LA dilatation and right ventricle dysfunction #Acute hypoxic respiratory failure #Restrictive cardiomyopathy #CAD #CRISTINO, resolved #Hx of HTN #Hx of HLD #History of TBI #Right-sided hemiparesis #History of BPH #Polysubstance abuse #Concern for Neglect Discharge instructions: If you don't have a PCP, please follow up with me Dr. Ro, or any one of my colleagues (My schedule will be AM) [facility], [address] [place] [id number]. Otherwise, follow up with your PCP within one week Follow up with Dr. Gagnon, drop hammer set up operator, within one week upon D/[place] [id number]. Call to make an appointment. Continue to take Amiodarone 200 mg twice a day by mouth once a day Continue to take Metoprolol XL 25 mg by mouth once a day Continue to take Eliquis 5 mg twice a day by mouth Patient seen and care discussed with my senior resident, Dr. Ba, and my attending physician, Dr. Serina Ro, PGY-1 Time Spent with Patient Time attestation: Total time spent providing and/or coordinating discharge services: Time spent: Greater than 30 minutes Home Health Home Health Referral Orders: 10/23/24 09:56 Home Health Referral Routine Reason For Exam: Home PT Home-Bound The patient must either because of illness or injury, need the aid of supportive devices such as crutches, canes, wheelchairs, and walkers; the use of special transportation; or the assistance of another person in order to leave their place of residence; OR have a condition such that leaving his or her home is medically contraindicated. In addition, the patient also meets the following criteria: patient is normally unable to leave the home and leaving home requires considerable taxing effort. Addendum to Home Health Certification Practitioner's Certification: I certify that the patient has been under my care in the hospital and the care of attending physician (see below). We had a gkqz-ao-ttma encounter on (see date below). My clinical findings indicate that the patient is home bound per the above criteria and the Home Health Services noted in these orders are medically necessary. The primary reason for the adgy-tp-tuya encounter is related to the fact that the patient requires home health services. Date Certifying Hrtv-dg-Ivnf Physician Encounter: 10/19/24 Physician's Name who will Assume Oversight for Services: Jairo Weaver Physician's Phone No.who will Assume Oversight for Service: IMMUNOPATHOLOGIST - Community Resources: Yes PT to Evaluate: Yes PT to evaluate and provide a treatmnet plan to increase patient's mobility and strength. Wound Care: No IV Therapy: No RN Safety Evaluation: Yes RN to evaluate and create a plan of care that will produce positive outcomes. Palliative Treatment: No Palliative treatment and evaluate the need for hospice. Home Health Aide - Personal Care: Yes Home Health Aide to assist with any ADL's. Exam Vital Signs Temp Pulse Resp BP Pulse Ox O2 Del Method O2 Flow Rate 98.0 F 85 18 146/74 H 95 Nasal Cannula 2 10/24/24 12:00 10/24/24 13:03 10/24/24 13:03 10/24/24 12:00 10/24/24 13:03 10/24/24 12:00 10/24/24 13:03 FiO2 2 10/24/24 12:00 Narrative Exam General: AAOx3, mild distress, [place]an-speaking male, obese, wearing numerous bracelets on arms, upright eating breakfast HEENT: Dry mucous membranes, conjunctiva clear, EOMI, PERRLA, Cardiovascular: S1, S2, radial pulses +2 bilat, irregularly irregular, tachycardic Pulmonary: Difficulty appreciating breath sounds, however possible wheezing heard upon auscultation GI: Abdomen does seem a bit firm upon palpation Extremities: No presence of trace or pitting edema in lower extremities bilaterally, dorsalis pedis pulses +2 bilaterally Neuro: AAOx3, right sided hemiparesis, wheelchair-bound Psych: Cooperative Discharge Plan Plan Patient Disposition: Xfer Skilled Nsg Fac (SNF) Disposition Comment: Dr. Smalls, telemetry Patient condition on transfer: Stable Care Plan Goals: Discharge Instructions: - Patient to be discharged to [facility] for prison needs and safe discharge - Follow up with PCP within 1 week - If you don't have a PCP, please follow up with me Dr. Ro, or any one of my colleagues (My schedule will be AM) at the [facility], [address] - Follow up with Dr. Gagnon, drop hammer set up operator, within one week upon D/C. [address] [place] [address]. Call to make an appointment. - Continue to take Amiodarone 200 mg twice a day by mouth once a day - Continue to take Metoprolol XL 25 mg by mouth once a day - Continue to take Eliquis 5 mg twice a day by mouth Si no tiene un PCP, comun?quese conmigo, el Dr. Ro, o con cualquiera de mis colegas (mi horario ser? el jueves por la ma?renetta). [facility], [address] [place] [address]. De lo contrario, adele un seguimiento con maurer PCP dentro de hawa semana. Adele un seguimiento con el Dr. Gagnon, cardi?logo, dentro de hawa semana despu?s de la D/C. [address] [place] [address]. Llmayi al para programar hawa tommy. Contin?e tomando Amiodarona 200 mg dos veces al d?a por v?a oral hawa vez al d?a. Contin?e tomando Metoprolol XL 25 mg por v?a oral hawa vez al d?a. Contin?e tomando Eliquis 5 mg dos veces al d?a por v?a oral. Prescriptions/Referrals Prescriptions/Med Rec: New Eliquis 5 mg tablet 5 mg PO BID 30 Days Qty: 60 0RF amiodarone 200 mg tablet 200 mg PO BID 30 Days Qty: 60 0RF metoprolol succinate 25 mg tablet extended release 24 hr 25 mg PO QDAY Qty: 30 0RF Continued lovastatin 20 MG tablet 20 mg PO HS Qty: 0 ropinirole 1 mg tablet 2 mg PO HS fluoxetine 10 mg capsule 10 mg PO QDAY doxazosin 4 mg Tablet 4 mg PO QDAY furosemide 20 mg tablet 20 mg PO .COMPLEX Patient Comments: TAKE 1 TABLET BY MOUTH EVERY DAY Rx Instructions: 20 mg orally DAILY; gabapentin 600 mg tablet 600 mg PO BID diclofenac sodium 50 mg tablet,delayed release (DR/EC) 50 mg PO TID PRN (Reason: PAIN SWELLING FEVER) Changed lisinopril 20 mg tablet 10 mg PO QDAY Qty: 30 0RF Held amlodipine 5 mg Tablet 10 mg PO QDAY Hold Instructions: hold to resume until PCP/cardiology follow up Discontinued metoprolol tartrate 100 mg tablet 100 mg PO BID Patient Comments: TOME HA[place] TABLETA DOS VECES AL D A CON ALIMENTO Referrals: Jairo Weaver MD [Primary Care Provider] - Patient/Caregiver Discharge Instructions Discharge Activity: wear oxygen at all times Print Language: [place] Stand Alone Forms: Irene Award Info., Patient Portal Info Letter Discharge Order Discharge Orders: Discharge (Routine); Ordered 10/24/24 Ordered By: Alex Romero Quality Discharge Quality Measures VTE prophylaxis (Eliquis ) Attestestation MD Attestation I reviewed labs, imaging, EKG, home medications and prior available records. Face to face evaluation was performed by me. I have personally examined the patient and discussed assessment and plan with the IM team. I reviewed the resident note and agree with the plan with exceptions as below. See my addendum in a separate addendum note
== END 2024-10-24 17:10 | disposition skilled nursing facility (03) | DRG 286 ==
LOC: SERX 11:51 → SERHOLD 13:23 → S2NX 10-20 15:07 → SERHOLD 10-21 06:04 → S2NX 10-23 14:01 → S3SX 10-23 20:18
PROVIDERS: Internal Medicine Cardiovascular Disease; Admitting Provider Student in an Organized Health Care Education/Training Program; Emergency Provider Emergency Medicine; PCP Family Medicine; Visit Provider Student in an Organized Health Care Education/Training Program
DX: I48.91 Unspecified atrial fibrillation (principal); J96.01 Acute respiratory failure with hypoxia; I69.851 Hemiplegia and hemiparesis following other cerebrovascular disease affecting right dominant side; N17.9 Acute kidney failure, unspecified; I50.42 Chronic combined systolic (congestive) and diastolic (congestive) heart failure; T76.01XA Adult neglect or abandonment, suspected, initial encounter; I42.5 Other restrictive cardiomyopathy; I11.0 Hypertensive heart disease with heart failure; E11.9 Type 2 diabetes mellitus without complications; N40.0 Benign prostatic hyperplasia without lower urinary tract symptoms; I45.10 Unspecified right bundle-branch block; E78.5 Hyperlipidemia, unspecified; W18.30XA Fall on same level, unspecified, initial encounter; E66.01 Morbid (severe) obesity due to excess calories; I95.9 Hypotension, unspecified; Z68.33 Body mass index [BMI] 33.0-33.9, adult; G25.81 Restless legs syndrome; E86.0 Dehydration; F19.10 Other psychoactive substance abuse, uncomplicated; I25.10 Atherosclerotic heart disease of native coronary artery without angina pectoris; Z91.81 History of falling; Z99.3 Dependence on wheelchair; Z79.899 Other long term (current) drug therapy; Z11.52 Encounter for screening for COVID-19
CPT/HCPCS: 36415; 70450; 71045; 72125; 73502; 74176; 80053; 80061; 80069; 80307; 81001; 82550; 82570; 82810; 83036; 83605; 83690; 83735; 83880; 84100; 84145; 84300; 84443; 84484; 85025; 85610; 85730; 87040; 87086; 87400; 87811; 92526; 92610; 93005; 93225; 93306; 94640; 94664; 96360; 96361; 96374; 97162; 99152; 99153; 99285; A4649; C1887; C1894; G0378; J0171; J0283; J0461; J1643; J1644; J2250; J2310; J2371; J3010; J3475; J3490; J7030; Q9967; A9270; J2305

== ENCOUNTER 2025-01-09 13:59 | Emergency (ER) | payer MEDICARE, MEDICAID, SELFPAY ==
[2025-01-09 13:59] VITALS: BMI 31.0
[2025-01-09 14:18] VITALS: BP 111/74; PULSE 87; RESP 18; TEMP 37.2; O2SAT 92
--- NOTE | 2025-01-09 14:33 | EDRME_ITS ---
Rapid Medical Screening Exam E Arrival date/time: 01/09/25 13:59 79-year-old male with a history of hypertension, hyperlipidemia, CVA with right- sided deficits, and congestive heart failure presents to the emergency room with a chief complaint of low blood pressure. Patient's caregiver also states that the patient received 3 melatonin Gummies and has been a lot more weak and fatigued. I have greeted and performed a focused initial assessment of this patient. A comprehensive ED assessment and evaluation of the patient, analysis of all test results, and completion of the medical decision making process will be conducted by additional ED providers. Chief Complaint: General Adult/Misc Complain Time Seen by Provider: 01/09/25 14:02 Vital signs: Vital Signs Temperature 98.9 F 01/09/25 14:18 Pulse Rate 87 01/09/25 14:18 Respiratory Rate 18 01/09/25 14:18 Blood Pressure 111/74 01/09/25 14:18 Pulse Oximetry (%) 92 L 01/09/25 14:18 Oxygen Delivery Method Room Air 01/09/25 14:18 Vital signs reviewed by provider: Yes
--- NOTE | 2025-01-09 14:33 | EKG_ITS ---
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
[2025-01-09 15:07] LABS: Basophils # (Auto) 0.1 Thou/mm3 (0.0-0.2); Basophils % (Auto) 1 % (0-2.5); Eosinophils # (Auto) 0.2 Thou/mm3 (0.0-0.5); Eosinophils % (Auto) 3 % (0-10); Hematocrit 39.7 % (41.0-53.0); Hemoglobin 14.1 g/dL (13.5-16.0); Immature Granulocytes % (Auto) 0 % (0-0); Immature Granulocytes Auto 0.01 Thou/mm3 (0.00-0.00); Lymphocytes # (Auto) 2.2 Thou/mm3 (1.0-4.8); Lymphocytes % (Auto) 30 % (10-50); Mean Corpuscular HGB Conc 35.5 g/dl (31.0-37.0); Mean Corpuscular Volume 90 fL (80-100); Monocytes # (Auto) 0.6 Thou/mm3 (0.0-0.8); Monocytes % (Auto) 9 % (0-12); Neutrophils # (Auto) 4.3 Thou/mm3 (1.8-7.7); Neutrophils % (Auto) 58 % (37-80); Nucleated Red Blood Cell % 0 /100 WBC (0); Platelet Count 217 Thou/mm3 (140-440); RDW Standard Deviation 40.9 fL (35.1-43.9); White Blood Count 7.4 Thou/mm3 (3.8-10.6)
[2025-01-09 15:31] LABS: B-Type Natriuretic Peptide < 20 pg/mL (0-100)
[2025-01-09 15:35] LABS: Alanine Aminotransferase 7 U/L (10-49); Albumin, Serum 4.2 gm/dL (3.4-4.8); Albumin/Globulin Ratio 1.4 (1.2-2.2); Alkaline Phosphatase 92 U/L (46-116); Anion Gap 11 (7-16); Aspartate Amino Transferase 17 U/L (0-34); BUN/Creatinine Ratio 13 Ratio (12-20); Bilirubin,Total 0.3 mg/dL (0.3-1.2); Blood Urea Nitrogen 16 mg/dL (9-23); Calcium 8.8 mg/dL (8.3-10.6); Calcium (Corrected) 8.8 mg/dL (8.5-10.1); Carbon Dioxide 29.3 mMol/L (20.0-31.0); Chloride 99 mMol/L (98-107); Creatinine (Component) 1.2 mg/dL (0.6-1.3); Estimated Creatinine Clearance 56.8 mL/min (>60); Globulin 2.9 gm/dL (2.3-3.5); Glucose 99 mg/dL (74-106); Magnesium 1.8 mg/dL (1.6-2.6); Osmolality,Calculated 278 (275-295); Potassium 3.8 mMol/L (3.4-5.1); Sodium 139 mMol/L (136-145); Total Protein 7.1 gm/dL (5.7-8.2); Troponin I < 0.002 ng/mL (0.0-0.045); eGFR > 60 See Note
--- NOTE | 2025-01-09 16:53 | PC.NURSE ---
PT CALL FOR BY DOCTOR AND NO ANSWER
--- NOTE | 2025-01-09 17:01 | PC.NURSE ---
PT CALLED BACK FOR DC AND NO ANSWER
--- NOTE | 2025-01-09 17:14 | PC.NURSE ---
PT CALLED BACK FOR DC AND NO ANSWER
== END 2025-01-09 17:16 | disposition left against medical advice (07) ==
PROVIDERS: Nurse Practitioner Family; Emergency Provider Emergency Medicine; PCP Family Medicine
DX: R03.1 Nonspecific low blood-pressure reading (principal); R53.1 Weakness; R53.83 Other fatigue; I45.10 Unspecified right bundle-branch block; I11.0 Hypertensive heart disease with heart failure; I50.9 Heart failure, unspecified; E78.5 Hyperlipidemia, unspecified; I69.351 Hemiplegia and hemiparesis following cerebral infarction affecting right dominant side; Z53.29 Procedure and treatment not carried out because of patient's decision for other reasons
CPT/HCPCS: 36415; 80053; 80307; 81001; 83735; 83880; 84484; 85025; 93005; 99281

== ENCOUNTER → 2025-02-18 | Outpatient (CLI) | payer MEDICARE, MEDICAID, SELFPAY ==
--- NOTE | 2025-02-18 10:24 | XR_ITS ---
Examination: Shoulder,left, 3 views Technique: Shoulder AP internal rotation, AP external rotation, Y view shoulder, 3 views Exam date and time :February 18, 2025 1053 hours INDICATIONS: Shoulder pain months FINDINGS: Advanced osteoarthritis glenohumeral joint was marked narrowing of this joint Obliteration of the space between the acromium and humeral head seen with rotator cuff tear Significant osteoarthritis acromioclavicular joint No fracture IMPRESSION: Advanced left shoulder osteoarthritis
--- NOTE | 2025-02-18 10:25 | XR_ITS ---
Examination: Lumbar spine 3 views Technique one AP lateral coned lateral lower lumbar spine 3 views Date and time: February 18, 2025 1107 hours INDICATIONS: Low back pain years FINDINGS: Lumbar dextroscoliosis 6 degrees Prominent lumbar spondylosis No acute lumbar fracture No spondylolisthesis Mild disc narrowing posteriorly L4-L5 IMPRESSION: Mild disc narrowing posteriorly L4-L5
== END | disposition home or self-care (01) ==
LOC: CDIM 10:12
PROVIDERS: PCP Internal Medicine; Referring Provider Internal Medicine; Visit Provider Internal Medicine
DX: M19.012 Primary osteoarthritis, left shoulder (principal); M75.102 Unspecified rotator cuff tear or rupture of left shoulder, not specified as traumatic; M41.9 Scoliosis, unspecified; M47.816 Spondylosis without myelopathy or radiculopathy, lumbar region; M48.061 Spinal stenosis, lumbar region without neurogenic claudication
CPT/HCPCS: 72100; 73030